=== PATIENT | female | born 1960 | race Caucasian/White ===

== ENCOUNTER 2021-06-11 14:02 | Outpatient (REF) | payer OTHER, SELFPAY ==
--- NOTE | ~2021-06-11 | XR_ITS ---
EXAMINATION: XR KNEE, BILATERAL XR KNEE, RIGHT CLINICAL INFORMATION: Right knee pain. COMPARISON: None. TECHNIQUE: Standing AP view of both knees and lateral and sunrise views of the right knee. FINDINGS: Right knee: Severe medial compartment joint space narrowing with minimal bony remodeling. Mild patellofemoral compartment joint space narrowing. Tricompartmental marginal osteophytes. No fracture or dislocation. Trace joint effusion. No abnormal soft tissue calcification. No acute fracture or dislocation. Left knee: Mild medial compartment joint space narrowing. Medial and lateral compartment marginal osteophytes. No osseous erosion. No fracture or dislocation. No abnormal soft tissue calcification. XR/XR knee RT 2V IMPRESSION: Right knee: Severe medial compartment as well as more moderate patellofemoral and lateral compartment osteoarthritis. Trace joint effusion. Left knee: [id number] medial as well as more mild lateral compartment osteoarthritis.
--- NOTE | ~2021-06-11 | XR_ITS ---
EXAMINATION: XR KNEE, BILATERAL XR KNEE, RIGHT CLINICAL INFORMATION: Right knee pain. COMPARISON: None. TECHNIQUE: Standing AP view of both knees and lateral and sunrise views of the right knee. FINDINGS: Right knee: Severe medial compartment joint space narrowing with minimal bony remodeling. Mild patellofemoral compartment joint space narrowing. Tricompartmental marginal osteophytes. No fracture or dislocation. Trace joint effusion. No abnormal soft tissue calcification. No acute fracture or dislocation. Left knee: Mild medial compartment joint space narrowing. Medial and lateral compartment marginal osteophytes. No osseous erosion. No fracture or dislocation. No abnormal soft tissue calcification. XR/XR knee standing BI IMPRESSION: Right knee: Severe medial compartment as well as more moderate patellofemoral and lateral compartment osteoarthritis. Trace joint effusion. Left knee: Lgaq-[id number] medial as well as more mild lateral compartment osteoarthritis.
== END 2021-06-11 14:03 | disposition home or self-care (01) ==
LOC: HO.HOSX 14:02
PROVIDERS: PCP Hospitalist; Visit Provider Orthopaedic Surgery
DX: M17.11 Unilateral primary osteoarthritis, right knee (principal)
CPT/HCPCS: 73560; 73565

== ENCOUNTER → 2021-08-07 10:22 | Outpatient (BNVA) | payer OTHER, SELFPAY | PROVIDERS: PCP Hospitalist; Visit Provider Orthopaedic Surgery | DX: M17.11 Unilateral primary osteoarthritis, right knee (principal) | CPT/HCPCS: 20610; J7323 ==

== ENCOUNTER → 2021-08-14 10:08 | Outpatient (BNVA) | payer OTHER, SELFPAY | PROVIDERS: PCP Hospitalist; Visit Provider Orthopaedic Surgery | DX: M17.11 Unilateral primary osteoarthritis, right knee (principal) | CPT/HCPCS: 20610; J7323 ==

== ENCOUNTER → 2021-08-21 10:19 | Outpatient (BNVA) | payer OTHER, SELFPAY | PROVIDERS: PCP Hospitalist; Visit Provider Orthopaedic Surgery | DX: M17.11 Unilateral primary osteoarthritis, right knee (principal) | CPT/HCPCS: 20610; J7323 ==

== ENCOUNTER 2021-12-30 15:34 | Outpatient (REF) | payer OTHER, SELFPAY ==
--- NOTE | ~2021-12-30 | XR_ITS ---
EXAMINATION: XR FOOT, LEFT CLINICAL INFORMATION: Pain left foot COMPARISON: None TECHNIQUE: AP, lateral, and oblique views of the left foot. FINDINGS: There is an oblique fracture involving the shaft and neck fifth toe proximal phalanx. Distal fracture fragment shows mild lateral and dorsal displacement. No dislocation or destructive process. The remainder the bony structures appear intact. There is a hallux valgus and bunion first MTP. Bulky posterior and plantar calcaneal spurs are present. XR/XR foot LT min 3V IMPRESSION: 1. Fracture fifth toe proximal phalanx. 2. Hallux valgus and bunion first MTP. 3. Bulky posterior and plantar calcaneal spurs.
== END 2021-12-30 15:35 | disposition home or self-care (01) ==
LOC: HO.HOSX 15:34
PROVIDERS: Visit Provider Physician Assistant
DX: M79.672 Pain in left foot (principal)
CPT/HCPCS: 73630

== ENCOUNTER 2022-05-17 10:28 | Outpatient (REF) | payer OTHER, SELFPAY ==
[2022-03-01 12:30] VITALS: BP 132/79; PULSE 72; RESP 20; O2SAT 97; BMI 28.7
--- NOTE | 2022-03-01 12:52 | HO.ANESPROP2 ---
[facility] Active Problems Active Problems: All Active Problems (Updated 03/01/22 @ 12:29 by Carolann Srinivasan RN) Arthritis of right knee (Acute) Fracture of proximal phalanx of toe of left foot (Acute) Past Medical History Medical History (Updated 03/01/22 @ 12:29 by Carolann Srinivasan, JUAN) Arthritis Diabetes Elevated cholesterol GERD (gastroesophageal reflux disease) History of COVID-19 HTN (hypertension) Family History Family history of problems with anesthesia: No Surgical History Surgical History (Updated 03/01/22 @ 12:25 by Carolann Srinivasan RN) H/O colonoscopy Hx of arthroscopy of right knee Hx of cholecystectomy History of Problems with Anesthesia: No Social History Social History Are you a primary foster care therapist to a significant other at home: No Do you presently have visiting nurse or other home services: No Patient Tobacco Use Status: Never used Tobacco Narrative Narrative: Covid + 2 weeks ago, lingering superficial cough (lungs CTA today) >4 mets without CP/SOB Meds Allergies Allergy/AdvReac Type Severity Reaction Status Date / Time No Known Allergies Allergy Verified 08/21/21 10:24 Home Medications Medication Instructions Recorded Confirmed Last Taken Type hydrochlorothiazide 25 mg tablet 25 mg PO DAILY 06/11/21 03/01/22 Unknown History lisinopril 5 mg tablet 5 mg PO DAILY 06/11/21 03/01/22 Unknown History omeprazole 20 mg capsule,delayed 20 mg PO Q2D 06/11/21 03/01/22 Unknown History release rosuvastatin 40 mg tablet 40 mg PO QAM 06/11/21 03/01/22 Unknown History glimepiride 2 mg tablet 2 mg PO DAILY 03/01/22 03/01/22 Unknown History metformin 500 mg tablet,extended 2 tab PO BID 03/01/22 03/01/22 Unknown History release 24 hr Exam Exam Date and Time: March 01, 2022 125 Height,Weight and Vital Signs: Height 5 ft 8 in Weight 85.729 kg Last Vital Signs Pulse 72 03/01/22 12:30 Resp 20 03/01/22 12:30 BP 132/79 03/01/22 12:30 Pulse Ox 97 03/01/22 12:30 O2 Del Method 03/01/22 12:30 Pertinent Lab Results Pertinent Lab Results: Labs per outside facility: elevated A1C otherwise WNL Narrative Narrative: EKG 02/2022 SR @ 77 Airway Mallampati Class: I TM Dist: >3cm Neck ROM: Full Loose/Missing/Broken Teeth: Yes (Missing right side lower molar, crowned molar) Heart: RRR Lungs: CTAB Assessment and Plan Assessment Anesthesia Assessment: Anesthesia Plan Discussed and PAT Visit Final Anesthetic Review Family History of Problems with Anesthesia: No History of Problems with Anesthesia: No
[2022-03-01 15:15] LABS: MRSA Nasal PCR NEGATIVE (Negative); SA Nasal PCR NEGATIVE (Negative)
[2022-03-03 11:50] LABS: Estimated Average Glucose 217 mg/dL; Hemoglobin A1c % 9.2 %
== END 2022-05-17 10:29 | disposition home or self-care (01) ==
LOC: HO.PAT 10:28
PROVIDERS: Physician Assistant; PCP Hospitalist; Visit Provider Orthopaedic Surgery
DX: Z01.818 Encounter for other preprocedural examination (principal); Z79.899 Other long term (current) drug therapy
CPT/HCPCS: 36415; 83036; 86900; 86901; 87640; 87641

== ENCOUNTER 2022-12-13 14:51 | Outpatient (AMB) | payer OTHER, SELFPAY ==
--- NOTE | 2022-12-13 14:54 | MHC.OFFVIS ---
Intake Intake Visit Reasons: discuss RT TKA, scheduled for 03/08/23 Intake Note: This is a 61 year old female who presents to continue to discuss surgery with Dr. Hoyos today. She states she would like to have surgery on 03/08/23. Allergies No Known Allergies Allergy (Verified 12/13/22 14:56) Medication List - Last Reconciled 12/13/22 by Harriet Weir, RN glimepiride 2 mg PO DAILY hydrochlorothiazide 25 mg PO DAILY lisinopril 5 mg PO DAILY metformin ER 2 tabs PO BID omeprazole 20 mg PO Q2D rosuvastatin 40 mg PO QAM HPI discuss RT TKA, scheduled for 03/08/23 HPI Details Barbara is a 61 year old Diabetic woman with right knee OA, here to discuss surgery. She is currently scheduled for a right TKA on 03/22/23 but believes her surgery is scheduled for 03/08/23. She complains of pain with daily activity, worse with prolonged walking or using stairs. 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 She says her Diabetes has been better controlled, and her most recent HgA1c was ~7.3%. She has been working on weight management & intermittent fasting. [facility] Medical History (Updated 12/13/22 @ 15:05 by Anthony Mahan) History of COVID-19 Arthritis Diabetes GERD (gastroesophageal reflux disease) Elevated cholesterol HTN (hypertension) Surgical History (Updated 03/01/22 @ 12:25 by Carolann Srinivasan RN) Hx of cholecystectomy H/O colonoscopy Hx of arthroscopy of right knee Social History Are you a primary patient care technician to a significant other at home: No Do you presently have visiting nurse or other home services: No Patient Tobacco Use Status: Never used Tobacco Review of Systems Const All systems reviewed & are unremarkable except as noted in HPI and below Physical Exam Const General: no acute distress, alert and awake Orientation/consciousness: patient oriented x3 HEENT Head: Yes normocephalic and Yes atraumatic Eyes EOM: EOMs intact bilaterally Resp Effort & Inspection: normal respiratory effort and able to speak in complete sentences Cardio Jugular venous distension: no JVD Skin General skin exam: turgor normal Rashes: no rashes Neuro General: patient oriented x3 Extrem Other: Medial joint line TTP antalgic gait Psych Appearance: grossly normal Affect: normal affect Attitude: cooperative Assessment & Plan Assessment & Plan (1) Arthritis of right knee: Code(s): M17.11 - Unilateral primary osteoarthritis, right knee Plan: This is a 61 year old woman with right knee OA. She has pain with daily activity, worse with prolonged ambulation or using stairs. She has failed conservative treatment options and feels her QOL is diminished. She is currently scheduled for a right TKA on 03/22/23, but believes she is scheduled for 03/08/23. I recommend we proceed with surgery as her Diabetes is better controlled at this time. I discussed the risks, benefits, and alternatives including, but not limited to, the risk of pain, infection, stiffness, need for further surgery as well as potential medical complications such as blood clots, pulmonary embolism and cardiac complications. I discussed the recovery timeline and process as well as the importance of PT. Barbara is a good candidate for this surgery, and she wishes to proceed with this decision. She will speak with Grace to schedule this procedure. (2) Diabetes: Comment: type 2-dx ~ 2018-taking metformin & new Rx for glimeperide 02/23-awaiting mail order to come in 03/01/22-does not usually check glucose Code(s): E11.9 - Type 2 diabetes mellitus without complications Plan: Says her most recent HgA1c was ~7.3% Plan Scribed for Asa Hoyos MD by Anthony Mahan, medical director/head team physician, on 12/13/22 at 3:05 PM, EST. Coding Level of Care Code Est Pt Level 4 (89643) Diagnoses Arthritis of right knee M17.11 Diabetes E11.9
== END 2022-12-13 15:47 | disposition home or self-care (01) ==
PROVIDERS: PCP Hospitalist; Visit Provider Orthopaedic Surgery
DX: M17.11 Unilateral primary osteoarthritis, right knee (principal)
CPT/HCPCS: 99214

== ENCOUNTER → 2022-12-13 14:51 | Outpatient (BNVA) | payer OTHER, SELFPAY | PROVIDERS: PCP Hospitalist; Visit Provider Orthopaedic Surgery ==

== ENCOUNTER 2023-03-03 13:23 | Outpatient (AMB) | payer OTHER, SELFPAY ==
--- NOTE | 2023-03-03 13:27 | MHC.OFFVIS ---
Intake Vital Signs 03/03/23 13:30 Height 5 ft 7 in Weight 196 lb BMI 30.7 Intake Visit Reasons: Preop RT TKA 03/08/23 NE Intake Note: Barbara a 62 year old female presents today for a preoperative right TKA, DOS 03/08/23. Pain management agreement reviewed and signed. Allergies No Known Allergies Allergy (Verified 03/03/23 13:31) Medication List - Last Reconciled 03/03/23 by Brian Awan PA-C dulaglutide (Trulicity) 1.5 mg subcut QWEEK glimepiride 2 mg PO QAM hydrochlorothiazide 25 mg PO QAM lisinopril 5 mg PO QAM metformin ER 2 tabs PO BID omeprazole 20 mg PO Q2D rosuvastatin 40 mg PO Q2D walker Folding Front wheeled walker HPI HPI Comments History of Present Illness Details Ms Heidi West presents to the office today for preop visit. She is scheduled for right total knee arthroplasty with Dr. Hoyos. She continues to have ongoing pain and difficulty with ambulation in the right knee, which is affecting her quality of life; therefore, she has elected to move forward with surgery. She lives alone with stairs only to enter the house. She does have a walker. She has family who will help with her recovery. [facility] Medical History (Updated 03/03/23 @ 12:15 by Carolann Srinivasan RN) Chest pain History of COVID-19 Arthritis Diabetes GERD (gastroesophageal reflux disease) Elevated cholesterol HTN (hypertension) Surgical History Hx of cardiac catheterization Hx of cholecystectomy H/O colonoscopy Hx of arthroscopy of right knee Social History Are you a primary pharmacy customer care specialist to a significant other at home: No Do you presently have visiting nurse or other home services: No Patient Tobacco Use Status: Never used Tobacco Review of Systems Const All systems reviewed & are unremarkable except as noted in HPI and below Physical Exam Vital Signs: BMI result Body Mass Index 30.7 Const General: cooperative and no acute distress Orientation/consciousness: patient oriented x3 HEENT Head: Yes normal to inspection, Yes normocephalic and Yes atraumatic Eyes General: appearance normal, both eyes and all related structures Neck Neck: Yes normal visual inspection and Yes no lymphadenopathy Resp Effort & Inspection: normal respiratory effort and able to speak in complete sentences Cardio Rate: regular rate Peripheral pulses: Peripheral pulses 2+ throughout GI Inspection: Yes normal to inspection Palpation (GI): Soft to palpation Skin General skin exam: no rashes or lesions noted Neuro General: patient oriented x3 Extrem Other: Right knee: Skin intact. No abrasions. ROM is 0-110 degrees. Calf supple, nontender. NVI. Psych Appearance: grossly normal Mental Status: mental status grossly normal Assessment & Plan Assessment & Plan (1) Arthritis of right knee: Code(s): M17.11 - Unilateral primary osteoarthritis, right knee Plan: I discussed in detail the procedure and what to expect pre and post operatively. We discussed the risks, benefits and alternatives to the surgery as well as the rehabilitation course. The risks; which include, but are not limited to infection, bleeding, nerve injury, ongoing pain, swelling, and stiffness, perioperative risk of injury to bones and soft tissues, and blood clots. I?ve answered all questions and with their understanding they have consented to move forward with Right total knee arthroplasty with Dr. Hoyos Patient Instructions: Scribed for Brian Awan PA-C, by Jerry Rowland medical assistant internal medicine, on 03/03/2023 at 1:45 PM EST. I, Brian Awan PA-C, have personally reviewed and agree with the information entered by the scribe. Coding Level of Care Code Est Pt Level 3 (01492) Diagnoses Arthritis of right knee M17.11
[2023-03-03 13:30] VITALS: BMI 30.7
== END 2023-03-03 13:41 | disposition home or self-care (01) ==
PROVIDERS: PCP Hospitalist; Visit Provider Physician Assistant
DX: M17.11 Unilateral primary osteoarthritis, right knee (principal)
CPT/HCPCS: 99024

== ENCOUNTER → 2023-03-03 13:23 | Outpatient (BNVA) | payer OTHER, SELFPAY | PROVIDERS: PCP Hospitalist; Visit Provider Physician Assistant ==

== ENCOUNTER 2023-03-08 07:13 | Inpatient (IN) | payer OTHER, SELFPAY ==
[2023-03-03 12:21] VITALS: BP 129/77; PULSE 89; RESP 20; O2SAT 98; BMI 31.2
--- NOTE | 2023-03-03 12:36 | P.CONAN_ITS ---
Documented by User: Caren Reis NP 03/07/23 09:04 HPI - Anesthesia Eval Consult details Narrative: 62yo F for Right Knee Replacement Total PCP cleared. Cardiac cleared. (12/2022 admit to [facility] with CP. EKG, ECHO, cath WNL. Started on aspirin) No recent illness No CP/SOB within limits of pain DM. FBS <100 GERD. Well controlled with ppi QOD Anesthesia Pre-Procedure Meds Is the patient on any of the following meds?: Dulaglutide (Trulicity) (Last dose 02/27/23) If Yes to any meds - educate patient: Pt education - increased risk of aspiration and Pt education - possibility of cancelled proc at provider's discretion PMFSH Active Problems Active Problems: All Active Problems (Updated 03/03/23 @ 12:15 by Carolann Srinivasan RN) Fracture of proximal phalanx of toe of left foot (Acute) Arthritis of right knee (Acute) Diabetes (Acute) Past Medical History Medical History (Updated 03/03/23 @ 12:15 by Carolann Srinivasan RN) Chest pain History of COVID-19 Arthritis Diabetes GERD (gastroesophageal reflux disease) Elevated cholesterol HTN (hypertension) Family History Family history of problems with anesthesia: No Surgical History Surgical History Hx of cardiac catheterization Hx of cholecystectomy H/O colonoscopy Hx of arthroscopy of right knee History of Problems with Anesthesia: No Social History Social History Are you a primary hearing care professional to a significant other at home: No Do you presently have visiting nurse or other home services: No Patient Tobacco Use Status: Never used Tobacco Use of substances other than those prescribed or required for medical reasons: No Have you been hit, kicked, punched, or otherwise hurt by someone within the past year? If so, by whom?: No Are you DNR?: No Advance Directives Information Provided: Yes (as above noted) Advance Directives on File: No Recently lost weight without trying: No Eating poorly because of decreased appetite: No Nutrition Risks: No Nutritional Risk Poor oral hygiene: No Meds Allergies Allergy/AdvReac Type Severity Reaction Status Date / Time No Known Allergies Allergy Verified 03/03/23 13:31 Home Medications Medication Instructions Recorded Confirmed Last Taken Type hydrochlorothiazide 25 mg tablet 25 mg PO QAM 06/11/21 03/03/23 03/07/23 History lisinopril 5 mg tablet 5 mg PO QAM 06/11/21 03/03/23 03/07/23 History omeprazole 20 mg capsule,delayed 20 mg PO Q2D 06/11/21 03/03/23 03/07/23 History release rosuvastatin 40 mg tablet 40 mg PO Q2D 06/11/21 03/03/23 03/07/23 History glimepiride 2 mg tablet 2 mg PO QAM 03/01/22 03/03/23 03/07/23 History metformin 500 mg tablet,extended 2 tab PO BID 03/01/22 03/03/23 03/07/23 History release 24 hr dulaglutide 1.5 mg/0.5 mL 1.5 mg subcut QWEEK 03/03/23 03/08/23 02/27/23 History subcutaneous pen injector (Trulicity) Exam Height,Weight and Vital Signs: Height 5 ft 6.5 in Weight 89 kg Last Vital Signs Pulse 89 03/03/23 12:21 Resp 20 03/03/23 12:21 BP 129/77 03/03/23 12:21 Pulse Ox 98 03/03/23 12:21 O2 Del Method Room Air 03/03/23 12:21 Pertinent Lab Results Pertinent Lab Results: Laboratory Last Values WBC 10.3 X10*3/uL (4.8-10.8) 03/03/23 13:16 RBC 4.97 X10*6/uL (4.20-5.50) 03/03/23 13:16 Hgb 14.4 g/dl (12.0-16.0) 03/03/23 13:16 Hct 42.3 % (37.0-47.0) 03/03/23 13:16 MCV 85.1 fL (80.0-98.0) 03/03/23 13:16 MCH 29.0 pg (27.0-33.0) 03/03/23 13:16 MCHC 34.0 g/dl (31.0-35.0) 03/03/23 13:16 RDW 12.6 % (11.0-16.0) 03/03/23 13:16 Plt Count 488 X10*3/uL (160-400) H 03/03/23 13:16 MPV 8.8 fL (9.4-12.3) L 03/03/23 13:16 Immature Gran % (Auto) 0.2 % (0.0-0.4) 03/03/23 13:16 Neut % (Auto) 58.5 % (45-73) 03/03/23 13:16 Lymph % (Auto) 29.7 % (20-40) 03/03/23 13:16 [place] % (Auto) 9.4 % (2-11) 03/03/23 13:16 Eos % (Auto) 1.7 % (0-4) 03/03/23 13:16 Baso % (Auto) 0.5 % (0-2) 03/03/23 13:16 Lymph # (Auto) 3.1 X10*3/uL (1.2-4.9) 03/03/23 13:16 [place] # (Auto) 1.0 X10*3/uL (0.1-1.2) 03/03/23 13:16 Eos # (Auto) 0.2 X10*3/uL (0.0-0.4) 03/03/23 13:16 Baso # (Auto) 0.1 X10*3/uL (0.0-0.2) 03/03/23 13:16 Abs Immat Gran (auto) 0.02 X10*3/uL (0.00-0.03) 03/03/23 13:16 Absolute Neuts (auto) 6.1 x10*3/uL (2.0-8.3) 03/03/23 13:16 Absolute Nucleated RBC 0.000 X10*3/uL (0.0-0.012) 03/03/23 13:16 Nucleated RBC % (auto) 0.0 /100WBC (0.0-0.2) 03/03/23 13:16 Nasal Screen MRSA (PCR) NEGATIVE (Negative) 03/03/23 12:30 Nasal S. aureus Screen NEGATIVE (Negative) 03/03/23 12:30 Nasal MRSA/S.aureus Interp SEE NOTE 03/03/23 12:30 Blood Type A Positive 03/03/23 13:58 Antibody Screen NEGATIVE 03/03/23 13:58 CMP from outside facility 02/2023 WNL Narrative Narrative: EKG 01/2023 NSR @ 81 ECHO 12/2022 1. LV nml is size. LV wall thickness mildly increased. LV systolic function nml with an estimated LVEF 55-65%. No RWMA. Indeterminate diastolic function 2. RV nml size and funtion. An accurate PAP could not be obtained 3. Biatrial size is nml 4. No hemodynamically significant valve disease 5. Asc aorta and aortic root are nml in size. Mild plaque in ascending aorta. Cardiac cath 12/2022 No clear leasions, LVEDP wnl Airway Mallampati Class: II TM Dist: >3cm Neck ROM: Full Loose/Missing/Broken Teeth: Yes (1 x missing, 1 x implant, ) Heart: RRR Lungs: CTAB Assessment and Plan Assessment Anesthesia Assessment: Anesthesia Plan Discussed and PAT Visit Final Anesthetic Review Family History of Problems with Anesthesia: No History of Problems with Anesthesia: No Documented by User: Jw Sawyer MD 03/08/23 08:08 [facility] Past Medical History Medical History (Updated 03/03/23 @ 12:15 by Carolann Srinivasan RN) Chest pain History of COVID-19 Arthritis Diabetes GERD (gastroesophageal reflux disease) Elevated cholesterol HTN (hypertension) Surgical History Surgical History Hx of cardiac catheterization Hx of cholecystectomy H/O colonoscopy Hx of arthroscopy of right knee Social History Social History Are you a primary hearing care professional to a significant other at home: No Do you presently have visiting nurse or other home services: No Patient Tobacco Use Status: Never used Tobacco Use of substances other than those prescribed or required for medical reasons: No Have you been hit, kicked, punched, or otherwise hurt by someone within the past year? If so, by whom?: No Are you DNR?: No Advance Directives Information Provided: Yes (as above noted) Advance Directives on File: No Recently lost weight without trying: No Eating poorly because of decreased appetite: No Nutrition Risks: No Nutritional Risk Poor oral hygiene: No Meds Allergies Allergy/AdvReac Type Severity Reaction Status Date / Time No Known Allergies Allergy Verified 03/03/23 13:31 Home Medications Medication Instructions Recorded Confirmed Last Taken Type hydrochlorothiazide 25 mg tablet 25 mg PO QAM 06/11/21 03/03/23 03/07/23 History lisinopril 5 mg tablet 5 mg PO QAM 06/11/21 03/03/23 03/07/23 History omeprazole 20 mg capsule,delayed 20 mg PO Q2D 06/11/21 03/03/23 03/07/23 History release rosuvastatin 40 mg tablet 40 mg PO Q2D 06/11/21 03/03/23 03/07/23 History glimepiride 2 mg tablet 2 mg PO QAM 03/01/22 03/03/23 03/07/23 History metformin 500 mg tablet,extended 2 tab PO BID 03/01/22 03/03/23 03/07/23 History release 24 hr dulaglutide 1.5 mg/0.5 mL 1.5 mg subcut QWEEK 03/03/23 03/08/23 02/27/23 History subcutaneous pen injector (Trulicity) Assessment and Plan Final Anesthetic Review NPO: Yes ASA Class: III Final Preanesthetic Review: No Changes in Pt Med Stat, Meds/Allgs Chart Reviewed and Anes Risks/Benef Reviewed Patient Risk: Intermediate Procedure Risk: Intermediate Anesthetic Plan Anesthetic Plan: Spinal, Regional Block and Agree w/ Assess. and Plan Disposition: Standard PACU
[2023-03-03 13:16] LABS: MANUAL DIFF FLAG NO
[2023-03-03 14:08] LABS: Basophils Absolute Auto 0.1 X10*3/uL (0.0-0.2); Basophils Percent Auto 0.5 % (0-2); Eosinophils Absolute Auto 0.2 X10*3/uL (0.0-0.4); Eosinophils Percent Auto 1.7 % (0-4); Hematocrit 42.3 % (37.0-47.0); Hemoglobin 14.4 g/dl (12.0-16.0); Imm Gran Abs Auto 0.02 X10*3/uL (0.00-0.03); Imm Gran Pct Auto 0.2 % (0.0-0.4); Lymphocytes Absolute Auto 3.1 X10*3/uL (1.2-4.9); Lymphocytes Percent Auto 29.7 % (20-40); Mean Corpuscular Volume 85.1 fL (80.0-98.0); Mean Platelet Volume 8.8 fL (9.4-12.3); Monocytes Percent Auto 9.4 % (2-11); Neutrophils Absolute Auto 6.1 x10*3/uL (2.0-8.3); Neutrophils Percent Auto 58.5 % (45-73); Platelet Count 488 X10*3/uL (160-400); Red Blood Count 4.97 X10*6/uL (4.20-5.50); Red Cell Distribution Width 12.6 % (11.0-16.0); White Blood Count 10.3 X10*3/uL (4.8-10.8)
[2023-03-03 14:24] LABS: MRSA Nasal PCR NEGATIVE (Negative); SA Nasal PCR NEGATIVE (Negative)
[2023-03-08] VITALS (14 sets, daily range): BP systolic 100–148; BP diastolic 52–79; PULSE 70–89; RESP 14–18; TEMP 36.1–36.6; O2SAT 94–99; BMI 31.0
--- NOTE | ~2023-03-08 | XR_ITS ---
EXAMINATION: XR KNEE, RIGHT CLINICAL INFORMATION: Right total knee arthroplasty COMPARISON: 06/11/2021 TECHNIQUE: Three views of the right knee. FINDINGS: Prosthetic components of the total knee arthroplasty are appropriately aligned. No periprosthetic fracture. Gas from recent surgery is present in the joint and surrounding soft tissues. Skin cherie are present anteriorly. XR/XR knee RT 2V IMPRESSION: Appropriate alignment of the right total knee arthroplasty.
--- OUTSIDE RECORDS SUMMARY | 2023-03-08 07:19 | XMS_ITS | Continuity of Care Document ---
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 Role Phone Not on Staff, PCP Primary Care Physician Unavail able Encounter [facility] Date(s): 01/07/23 - 01/07/[address] [address]- Discharge Disposition: Transferred to [facility]-term [facility] Attending Physician: Arturo Selby DO Admitting Physician: Arturo Selby DO Referring Physician: Not on Staff, Referring MD Allergies, Adverse Reactions, Alerts No Known Allergies Medications Freestyle Lancets Freestyle Lancets, Refills 0, Maintenance, 01/28/16 15:05:27, Compound Start Date: 01/28/16 Status: Ordered Freestyle Litestrips Freestyle Litestrips, Refills 0, Maintenance, 01/28/16 15:06:11, Compound Start Date: 01/28/16 Status: Ordered glimepiride 2 mg oral tablet 1 tablet = 2 mg, By Mouth, Daily, # 30 tablet, 0 Refills, Maintenance, 01/07/23 9:37:00 EDT, Tablet, Partial fill upon patient request if the prescription is for a schedule II opioid drug. Start Date: 01/07/23 Status: Ordered hydrochlorothiazide 25 mg oral tablet 25 mg, 1, tablet, By Mouth, Daily, Refills 0, Maintenance, 01/07/23 9:44:00 EDT, Partial fill upon patient request if the prescription is for a schedule II opioid drug. Start Date: 01/07/23 Status: Ordered lisinopril 5 mg oral tablet 5 mg, 1, tablet, By Mouth, Daily, # 30 tablet, Refills 0, Maintenance, 01/07/23 9:34:00 EDT, Partial fill upon patient request if the prescription is for a schedule II opioid drug. Start Date: 01/07/23 Status: Ordered MetFORMIN (Eqv-Glucophage XR) 500 mg oral tablet, extended release 2 tablet = 1,000 mg, By Mouth, 2 times a day, 0 Refills, Maintenance, 01/07/23 9:33:00 EDT, Partialfill upon patient request if the prescription is for a schedule II opioid drug. Start Date: 01/07/23 Status: Ordered Metoprolol Tartrate 25 mg oral tablet 0.5 tablet = 12.5 mg, By Mouth, 2 times a day, WITH FOOD Start Date: 01/07/23 Status: Ordered omeprazole 20 mg oral enteric coated capsule 1 capsule = 20 mg, By Mouth, Daily, 0 Refills, Maintenance, 01/28/16 14:50:08 Start Date: 01/28/16 Status: Ordered rosuvastatin 40 mg oral tablet 1 tablet = 40 mg, By Mouth, Daily, # 60 tablet, 0 Refills, Maintenance, 01/07/23 9:34:00 EDT, Tablet, Partial fill upon patient request if the prescription is for a schedule II opioid drug. Start Date: 01/07/23 Status: Ordered Trulicity Pen 1.5 mg/0.5 mL subcutaneous solution = 1.5 mg, Subcutaneous Injection, Every week, on Sundays Start Date: 01/07/23 Status: Ordered Problem List Condition Confirmation Course Effective Dates Status Health St atus Informant Family history of breast cancer Confirmed Active Lobular carcinoma in situ (LCIS) of right breast, and [place], 2012 Confirmed Active Obese class I Confirmed Active Vital Signs Most recent to oldest [Reference Range]: 1 2 3 Height 170 cm (01/07/23 7:32 AM) 170 cm (01/07/23 7:03 AM) 170 cm (01/07/23 7:01 AM) Weight 89.9 kg (01/07/23 7:32 AM) 89.9 kg (01/07/23 7:03 AM) 89.9 kg (01/07/23 7:01 AM) Oxygen Saturation [94-100 %] 100 % (01/07/23 7:32 AM) 96 % (01/07/23 7:03 AM) 98 % (01/07/23 7:01 AM) Pulse Rate [55-90 bpm] 86 bpm (01/07/23 7:32 AM) 92 bpm *H* (01/07/23 7:03 AM) 89 bpm (01/07/23 7:01 AM) Body Mass Index [18.5-24.99 kg/m2] 31.11 kg/m2 *>HHI* (01/07/23 7:32 AM) 31.11 kg/m2 *>HHI* (01/07/23 7:03 AM) 31.11 kg/m2 *>HHI* (01/07/23 7:01 AM) Blood Pressure [90-138/55-84 mm Hg] 141/82mm Hg *H* (01/07/23 7:32 AM) 115/104mm Hg (01/07/23 7:03 AM) 115/104mm Hg (01/07/23 7:01 AM) Respiratory Rate [16-30 br/min] 18 br/min (01/07/23 7:32 AM) 16 br/min (01/07/23 7:03 AM) 16 br/min (01/07/23 7:01 AM) Temperature [96.8-100.4 DegF] 98 DegF (01/07/23 7:32 AM) 98.4 DegF (01/07/23 6:44 AM) Mode of Delivery (Oxygen) Room air (01/07/23 7:32 AM) Room air (01/07/23 7:03 AM) Room air (01/07/23 7:01 AM) Blood pressure sites Arm, right (01/07/23 7:32 AM) Arm, right (01/07/23 7:03 AM) Arm, right (01/07/23:01 AM) Temperature Route Oral (01/07/23 7:32 AM) Oral (01/07/23 6:44 AM) Dry Weight 89.9 kg (01/07/23 7:32 AM) 89.9 kg (01/07/23 7:03 AM) 89.9 kg (01/07/23 7:01 AM) Weight Obtained Via Standing scale (01/07/23 6:44 AM) Standing scale (01/07/23 6:33 AM) Dry Weight Obtained Via Standing scale (01/07/23 6:44 AM) Standing scale (01/07/23 6:33 AM) Social History Social History Type Response Smoking Status Never smoker entered on: 08/09/14 Sex EKG study * Event Display: ECG 12-Lead Authored Date: Please click on pdf link to open report * Event Display: ECG 12-Lead Authored Date: Ventricular Rate: 87 BPM Atrial Rate: 87 BPM P-R Interval: 148 ms QRS Duration: 90 ms Q-T Interval: 386 ms QTC Calculation(Bazett): 464 ms P [place]: 24 degrees R [place]: 21 degrees T [place]: 39 degrees Normal sinus rhythm Normal ECG When compared with ECG of 07-JAN-2023 06:33, No significant change was found Confirmed by VERENA SUAZO MD ([id number]) on 01/07/2023 11:44:50 AM [place]: VERENA SUAZO MD Patient Care team information Care Team Personnel Name: Caren Wynne Position: [facility] Outreach Member Role: Lifetime Consulting Physician Name: Not on Staff, PCP Position: [facility] Physician (General Medicine) Member Role: PCP Name: Bri Garvey Position: [facility] Outreach Member Role: Lifetime Consulting Physician Name: Dary Moore Position: [facility] ED TA [facility] Name: Yaritza Junior DO Position: [facility] ED Medicine MD Member Role: ED Attending Physician Address: Address: [address] [place] [address] [place] [address]- Care Team Related Persons Name: LOUIS WINSTON Address: home [address] [place] [address]
--- OUTSIDE RECORDS SUMMARY | 2023-03-08 07:19 | XMS_ITS | Continuity of Care Document ---
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 Role Phone Mnada XIAO, Mary Primary Care Physician Encounter [facility] Date(s): 05/14/21 - 06/13/21 [facility] [address] [place] [address]- Allergies, Adverse Reactions, Alerts No Known Allergies Medications Freestyle Lancets Freestyle Lancets, Refills 0, Maintenance, 01/28/16 15:05:27, Compound Start Date: 01/28/16 Status: Ordered Freestyle Litestrips Freestyle Litestrips, Refills 0, Maintenance, 01/28/16 15:06:11, Compound Start Date: 01/28/16 Status: Ordered Hydrochlorothiazide By Mouth, Daily, 0 Refills, Maintenance, 08/09/14 13:38:01 Start Date: 08/09/14 Status: Ordered Lisinopril By Mouth, Daily, 0 Refills, Maintenance, 08/09/14 13:37:35 Start Date: 08/09/14 Status: Ordered metFORMIN 500 mg oral tablet 1 tablet = 500 mg, By Mouth, 2 times a day, 0 Refills, Maintenance, 01/28/16 14:48:28 Start Date: 01/28/16 Status: Ordered omeprazole 20 mg oral enteric coated capsule 1 capsule = 20 mg, By Mouth, Daily, 0 Refills, Maintenance, 01/28/16 14:50:08 Start Date: 01/28/16 Status: Ordered Simvastatin By Mouth, Daily at bedtime, 0 Refills, Maintenance, 08/09/14 13:38:28 Start Date: 08/09/14 Status: Ordered Problem List Condition Effective Dates Status Health Status Inform ant Family history of breast cancer(Confirmed) Active Lobular carcinoma in situ (L CIS) of right breast, and [place] 2013(Confirmed) Active Social History Social History Type Response Smoking Status Never smoker entered on: 08/09/14 Sex
--- OUTSIDE RECORDS SUMMARY | 2023-03-08 07:19 | XMS_ITS | Patient Health Record ---
Author Name Unknown Organization [facility] Address [address] [place] [address] Care Team Providers Care Wad Compressor Operator Adjuster Name Role Phone DANIELLA MCINTOSH Primary Care Provider KylahBeatriz jin Unavailable [phone] ALLERGIES No Known Allergies RESULTS Component Value Reference Range Notes CBC (COMPLETE BLOOD COUNT) Reviewed date:01/06/2023 07:54:06 AM Interpretation: Performing Lab:Testing performed or reported by [facility], a Service of [facility], [address] [place] [address] Kenneth Patel MD, Service Loss Control Consultant CLIA# [id number] Notes/Report: WBC 11.8 (4.0-11.0) K/MM3 RBC 5.03 (4.20-5.40) M/MM3 HGB 14.5 (11.7-15.5) GM/DL HCT 41.7 (35.7-45.8) % MCV 82.9 (80.0-100.0) FL MCH 28.8 (27.0-34.0) PG MCHC 34.8 (33.0-37.0) g/dL PLT 443 (150-460) K/MM3 RDW-SD 38.1 (<47.0) FL MPV 8.7 (9.4-12.4) FL AUTOMATED NRBC 0.0 ABS. NRBC 0.0 COMPREHENSIVE METABOLIC PANE L Reviewed date:01/06/2023 07:53:53 AM Interpretation: Performing Lab:Testing performed or reported by [facility], a Service of [address] [address] Kenneth Patel MD, Service Loss Control Consultant CLIA# [id number] Notes/Report: GLUCOSE 203 (70-99) MG/DL BUN 11 (8-23) MG/DL CREATININE 0.6 (0.5-1.0) MG/DL SODIUM 134 (133-145) MMOL/L POTASSIUM 3.9 (3.6-5.2) MMOL/L CHLORIDE 96 (98-107) MMOL/L BICARBONATE 24 (22-29) MMOL/L ANION GAP 14 (4-17) ALBUMIN 4.6 (3.4-4.8) GM/DL CALCIUM 9.4 (8.6-10.5) MG/DL BILIRUBIN,TOTAL 0.3 (0-1.2) MG/DL TOTAL PROTEIN 7.1 (6.2-8.2) GM/DL AG RATIO 1.8 AST 19 (0-32) U/L ALK PHOS 84 (35-104) U/L ALT 24 (0-33) U/L ESTIMATED GFR CREATININE 100 Creatinine based estimated glomerular filtration (eGFR) in adults is calculated using the National Kidney Foundation recommended 2020 CKD-EPI equation. Estimates GFR from serum creatinine, age and sex. TSH Reviewed date:01/06/2023 07:54:13 AM Interpretation: Performing Lab:Testing performed or reported by [facility], a Service of [address] [address] Kenneth Patel MD, Service Loss Control Consultant [facility]# [id number] Notes/Report: TSH 1.06 (0.4-4.2) uIU/mL HEMOGLOBIN A1C Reviewed date:06/24/2022 04:15:27 PM Interpretation: Performing Lab:Testing performed or reported by [facility], a Service of [address] [address] Paradise Torres MD, Service Loss Control Consultant [facility]# [id number] Notes/Report: HEMOGLOBIN A1C 6.6 (4.0-5.6) % MONITORING: In known diabetic patients, hemoglobin A1c targets should be discussed with health care provider. DIAGNOSTIC USE: The [place] Diabetes Association (ADA) and the World Health Organization (WHO) recommend the use of HbA1c to diagnose diabetes using a threshold of 6.5%. Patients who have an HbA1c between 5.7% and 6.4% are considered at increased risk for developing diabetes in the future. CAUTION: Falsely low HbA1c results may be observed in patients with hemolytic anemia, homozygous forms of abnormal hemoglobin (e.g. SS, CC, SC), , recent blood loss or hemoglobin F greater than 7%. Fructosamine may be used as an alternate test in these cases. REFERENCE: ADA: Standards of Medical Care in Diabetes 2020, The Journal of Clinical and Applied Research and Education Volume 43, Supplement 1 HEMOGLOBIN A1C Reviewed date:09/24/2022 09:11:14 AM Interpretation: Performing Lab:Testing performed or reported by [facility], a Service of [address] [address] Kenneth Patel MD, Service Loss Control Consultant [facility]# [id number] Notes/Report: HEMOGLOBIN A1C 6.9 (4.0-5.6) % MONITORING: In known diabetic patients, hemoglobin A1c targets should be discussed with health care provider. DIAGNOSTIC USE: The [place] Diabetes Association (ADA) and the World Health Organization (WHO) recommend the use of HbA1c to diagnose diabetes using a threshold of 6.5%. Patients who have an HbA1c between 5.7% and 6.4% are considered at increased risk for developing diabetes in the future. CAUTION: Falsely low HbA1c results may be observed in patients with hemolytic anemia, homozygous forms of abnormal hemoglobin (e.g. SS, CC, SC), , recent blood loss or hemoglobin F greater than 7%. Fructosamine may be used as an alternate test in these cases. REFERENCE: ADA: Standards of Medical Care in Diabetes 2020, The Journal of Clinical and Applied Research and Education Volume 43, Supplement 1 High Sensitivity Troponin T Reviewed date:01/06/2023 08:43:43 AM Interpretation: Performing Lab:Testing performed or reported by [facility], a Service of [address] [address] Kenneth Patel MD, Service Loss Control Consultant [facility]# [id number] Notes/Report: High Sensitivity Troponin T 16 (<14) ng/L The reference range for high sensitivity Troponin T (hs-Dioni) is below the 99th percentile upper reference limit (14 ng/L for females and 22 ng/L for males). The elevated result above upper reference limit is not always consistent with myocardial infarction or injury. High Sensitivity Troponin T has a non-specific/non-diagnost ic elevation in the range of 14 ng/L- 52 ng/L. Interpretation is highly dependent on clinical presentation and patient history. Patients with active symptoms, dynamic EKG changes and/or concerning clinical presentations should be considered for urgent evaluation irrespective of troponin results. Clear elevation of hs-Dioni (> or EQ 53 ng/L) with positive delta change is consistent with myocardial injury or infarction. Interpretation is highly dependent on clinical presentation and patient history. Patients with renal failure, chronic heart failure, chronic infections and sepsis tend to run higher baseline hs-Dioni levels with significant elevations or positive delta per the ED and In-patient protocols having clinical relevance. COMPREHENSIVE METABOLIC PANE L Reviewed date:02/28/2023 04:33:20 PM Interpretation: Performing Lab:Testing performed or reported by [facility], a Service of [facility], [address] [place] [address] Kenneth Patel MD, Service Loss Control Consultant [facility]# [id number] Notes/Report: GLUCOSE 97 (70-99) MG/DL BUN 16 (8-23) MG/DL CREATININE 0.7 (0.5-1.0) MG/DL SODIUM 133 (133-145) MMOL/L POTASSIUM 4.6 (3.6-5.2) MMOL/L CHLORIDE 96 (98-107) MMOL/L BICARBONATE 26 (22-29) MMOL/L ANION GAP 11 (4-17) ALBUMIN 4.4 (3.4-4.8) GM/DL CALCIUM 9.3 (8.6-10.5) MG/DL BILIRUBIN,TOTAL 0.4 (0-1.2) MG/DL TOTAL PROTEIN 7.1 (6.2-8.2) GM/DL AG RATIO 1.6 AST 21 (0-32) U/L ALK PHOS 89 (35-104) U/L ALT 20 (0-33) U/L ESTIMATED GFR CREATININE 97 Creatinine based estimated glomerular filtration (eGFR) in adults is calculated using the National Kidney Foundation recommended 202 CKD-EPI equation. Estimates GFR from serum creatinine, age and sex. HEMOGLOBIN A1C WITH EST GLUC OSE Reviewed date:03/01/2023 11:57:22 AM Interpretation: Performing Lab:Testing performed or reported by [facility], a Service of [facility], [address] [place] [address] Kenneth Patel MD, Service Loss Control Consultant [facility]# [id number] Notes/Report: HEMOGLOBIN A1C 6.5 (4.0-5.6) % MONITORING: In known diabetic patients, hemoglobin A1c targets should be discussed with health care provider. DIAGNOSTIC USE: The [place] Diabetes Association (ADA) and the World Health Organization (WHO) recommend the use of HbA1c to diagnose diabetes using a threshold of 6.5%. Patients who have an HbA1c between 5.7% and 6.4% are considered at increased risk for developing diabetes in the future. CAUTION: Falsely low HbA1c results may be observed in patients with hemolytic anemia, homozygous forms of abnormal hemoglobin (e.g. SS, CC, SC), , recent blood loss or hemoglobin F greater than 7%. Fructosamine may be used as an alternate test in these cases. REFERENCE: ADA: Standards of Medical Care in Diabetes 2020, The Journal of Clinical and Applied Research and Education Volume 43, Supplement 1 ESTIMATED AVERAGE GLUCOSE 140 LIPID PANEL Reviewed date:02/28/2023 04:33:07 PM Interpretation: Performing Lab:Testing performed or reported by [facility], [place] [address] Kenneth Patel MD, Service Loss Control Consultant [facility]AY# [id number] Notes/Report: CHOLESTEROL, TOTAL 136 (<200) MG/DL TRIGLYCERIDE 100 (<150) MG/DL HDL CHOL 43 (>39) MG/DL LDL CHOLESTEROL, CALCULATED 73 (0-130) MG/DL NON HDL CHOLESTEROL (CALC) 93 (<160) MG/DL MICROALBUMIN, URINE Reviewed date:02/28/2023 04:33:23 PM Interpretation: Performing Lab:Testing performed or reported by [facility], a Service of [address] [address] Kenneth Patel MD, Service Loss Control Consultant [facility]# [id number] Notes/Report: MICRO-ALBUMIN <12.0 (<20) MG/L The urine microalbumin test is designed to monitor renal function. When screening for Bence Simms proteinuria, urine electrophoresis is recommended. MALB/CREAT RATIO Unable to calculate (0-20) MG/GM URINE CREAT FOR MICRO ALBUMIN 99.4 REASON FOR REFERRAL Reason snoring Diagnosis 1 Snoring (R06.83) Referral Organization [facility] Referring Provider First Name DANIELLA Referring Provider Last Name GUManuel Referring Provider Speciality Internal M edicine Referred Provider Specialty Sleep Medici ne General Notes Sent referral to [facility] - [address] [place] [address] w/ fax# [phone] phone #[phone]. Office will call pt for appt.Tabitha Ceasar 12/23/2022 04:19:30 PM > Clinical Notes Nicky from [facility] asked for the PT's details and offered to call us back within the next couple of days., Fritz ADORNO 01/31/2023 04:42:46 PM >, Got routed to the facility's answering service. Spoke to Mayank, he gathered the PT's name and advised that they will just call us back for the status of the referral and if the PT already has an appointment. No turnaround time provided., Fritz ADORNO 02/03/2023 09:15:26 AM >, Confirmed that [facility] received the referral. PT has been seen last 01/03/2023 by KYLAH Vidal, and was seen last 01/27 for home sleep study., Fritz ADORNO 02/04/2023 10:26:54 AM > Referral Priority Routine Reason Chest Pain- [facility] Diagnosis 1 Chest pain, unspecif ied (R07.9) Referral Organization [facility] Referring Provider First Name DANIELLA Referring Provider Last Name ARNALDO Referring Provider Speciality Internal edicine Referred Provider Specialty Cardiology General Notes [facility] Form and Re ferral sent to [facility] - [address] [place] [address] phone# [phone] ., Anthony Lu 01/11/2023 01:55:03 PM > Clinical Notes Received a fax from [facility] pt. is scheduled on 02/02/2023 11:20am with Dr. Stanley Gao at [address] [place] [address] [address]. [place]. Called pt. and pt. is aware.Tabitha Ceasar 01/28/2023 10:14:51 AM > Referral Priority Routine MEDICATIONS Medication SIG (Take, Route, Frequency, Duration) Notes Start Date End Date Status Vitamin C ER 1500 MG 1 tablet Orally Onc e a day for 90 days Active Naproxen 500 MG 1 tablet as needed Orally every 12 hrs for 90 days Active Vitamin B12 one daily Active Trulicity 1.5 MG/0.5ML INJECT [address] SUBCUTANEOUS ROUTE ONCE A WEEK 90 DAYS for 90 Active Glimepiride 2 MG 1 tablet with breakfast or the first main meal of the day Orally Once a day for 90 days 02/23/2022 Active metFORMIN HCl ER 500 MG 2 TABLETS Orally twice a day for 90 days Active Lisinopril 5 MG 1 tablet Orally Once a day for 90 days Active hydroCHLOROthiazide 25 MG 1 tablet in th e morning Orally Once a day for 90 days Active FreeStyle Lite Test - as directed Dx: E1 1.8 In Vitro check blood sugars three times daily for 90 days 06/23/2022 Active Omeprazole 20 MG 1 capsule 30 minutes before morning meal Orally Once a day for 90 days Active Rosuvastatin Calcium 40 MG 1 tablet Oral ly Once a day for 90 days Active Meclizine HCl 25 MG 1 tablet as needed Orally Once a day for 90 days 10/14/2021 Active IMMUNIZATIONS Vaccine Route Administration Date Status Comme nts Tdap Unknown 08/22/2009 Administered Tdap Unknown 11/26/2009 Administered Tdap Unknown 05/30/2019 Administered Hep B, adult dosage, for intramuscular use Unknown 11/20/2002 Administered COVID 19 Pfizer Unknown 05/03/2020 Administered COVID 19 Pfizer Unknown 05/24/2020 Administered SOCIAL HISTORY Tobacco Use: Social History Observation Description Date Details (start date - stop date) Never Smoker NA - NA Sex Assigned At : Social History Observation Description Sex Assigned At Unknown Tobacco Use/Smoking Question Answer Notes Are you a nonsmoker PROBLEMS Problem Type ICD Code Onset Dates Problem Status W/U Status Risk SNOMED Code Notes Problem Type 2 diabetes mellitus with unspecified complications (E11.8) Active confirmed Disorder due to type 2 diabetes mellitus (917994684) Problem Other obesity due to excess calories (E66.09) Active confirmed Obesity du e to excess calories (008954779) Problem Mixed hyperlipidemia (E78.2) Active confirmed Mixed hyperlipidemia (998917257) Problem Gastro-esophageal reflux disease without esophagitis (K21.9) Active confirmed Gastro-esophage al reflux disease without esophagitis (261967840) Problem Polyosteoarthriti s, unspecified (M15.9) Active confirmed Osteoarthritis (808013174) Problem Essential (primary) hypertension (I10) Active confirmed Essential hypertension (34642281) Problem Personal history of COVID-19 (Z86.16) Active confirmed History of disease caused by Severe acute respiratory syndrome coronavirus 2 (situation) (9903524747640476 05) VITAL SIGNS Heart Rate 98 /min 03/01/2023 Temperature 98.2 degrees Fahrenheit 03/01/2023 Oximetry 98 % 03/01/2023 Blood pressure diastolic 80 mm Hg 03/01/2023 Height 66.5 in 03/01/2023 Blood pressure systolic 128 mm Hg 03/01/2023 Weight 197 lbs 03/01/2023 BMI 31.32 kg/m2 03/01/2023 Encounters Encounter Location Date Provider Diagnosis [address] [address] 06/07/[address] [address] 06/16/[address] [address] 04/15/2022 Beatriz Montero Type 2 diabetes mellitus with unspecified complications E11.8 ; Adult-onset obesity E66.9 and Essential (primary) hypertension I10 [address] [address] 06/23/2022 [facility] Type 2 diabetes mellitus with unspecified complications E11.8 ; Essential (primary) hypertension I10 ; Mixed hyperlipidemia E78.2 ; Gastro-esophageal reflux disease without esophagitis K21.9 ; Body mass index (BMI) 30.0-30.9, adult Z68.30 ; Dietary counseling and surveillance Z71.3 and Pain in left shoulder M25.[address] [address] 12/23/2022 [facility] Type 2 diabetes mellitus with unspecified complications E11.8 ; Essential (primary) hypertension I10 ; Mixed hyperlipidemia E78.2 ; Gastro-esophageal reflux disease without esophagitis K21.9 ; Other obesity due to excess calories E66.09 and Dietary counseling and surveillance Z71.[address] [address] 01/05/2023 [facility] Chest pain, unspecif ied R07.9 [facility] [address] [place] [address] 01/11/2023 [facility] GUL Chest pain, unspecif ied R07.9 [facility] [address] [place] [address] 03/01/2023 BREW[facility] GUL Encounter for other preprocedural examination Z01.818 [facility] [address] [place] [address] 04/19/2022 [facility] [address] [place] [address] 04/23/2022 [facility] [address] [place] [address] 04/26/2022 [facility] Adult-onset obesity E66.9 and Type 2 diabetes mellitus without complications E11.9 [facility] [address] [place] [address] 06/23/2022 [facility] [address] [place] [address] 06/24/2022 [facility] [address] [place] [address] 09/08/2022 [facility] GUL Type 2 diabetes mellitus with unspecified complications E11.8 [facility] [address] [place] [address] 09/24/2022 [facility] GUL Type 2 diabetes mellitus with unspecified complications E11.8 [facility] [address] [place] [address] 10/26/2022 [facility] Type 2 diabetes mellitus with unspecified complications E11.8 ; Essential (primary) hypertension I10 and Type 2 diabetes mellitus without complications E11.9 [facility] [address] [place] [address] 01/06/2023 [facility] [address] [place] [address] 03/01/2023 [facility] [address] [place] [address] 04/12/2022 [facility] Encounter Date Diagnosis Assessment Notes Treatment Notes Treatment Clinical Notes 03/01/2023 Encounter for other preprocedural examination (ICD-10 - Z01.818) 01/11/2023 Chest pain, unspecified (ICD-10 - R07.9) 01/05/2023 Chest pain, unspecified (ICD-10 - R07.9) 12/23/2022 Type 2 diabetes mellitus with unspecified complications (ICD-10 - E11.8) 10/26/2022 Type 2 diabetes mellitus with unspecified complications (ICD-10 - E11.8) 09/24/2022 Type 2 diabetes mellitus with unspecified complications (ICD-10 - E11.8) 09/08/2022 Type 2 diabetes mellitus with unspecified complications (ICD-10 - E11.8) 04/15/2022 Type 2 diabetes mellitus with unspecified complications (ICD-10 - E11.8) 04/15/2022 Adult-onset obesity (ICD-10 - E66.9) 04/26/2022 Type 2 diabetes mellitus without complications (ICD-10 - E11.9) 04/26/2022 Adult-onset obesity (ICD-10 - E66.9) 06/23/2022 Type 2 diabetes mellitus with unspecified complications (ICD-10 - E11.8) 06/23/2022 Essential (primary) hypertension (ICD-10 - I10) 06/23/2022 Mixed hyperlipidemia (ICD-10 - E78.2) 12/23/2022 Essential (primary) hypertension (ICD-10 - I10) 10/26/2022 Essential (primary) hypertension (ICD-10 - I10) 04/15/2022 Essential (primary) hypertension (ICD-10 - I10) 10/26/2022 Type 2 diabetes mellitus without complications (ICD-10 - E11.9) 12/23/2022 Mixed hyperlipidemia (ICD-10 - E78.2) 06/23/2022 Gastro-esophageal reflux disease without esophagitis (ICD-10 - K21.9) 06/23/2022 Body mass index (BMI ) 30.0-30.9, adult (ICD-10 - Z68.30) 12/23/2022 Gastro-esophageal reflux disease without esophagitis (ICD-10 - K21.9) 12/23/2022 Other obesity due to excess calories (ICD-10 - E66.09) 06/23/2022 Dietary counseling and surveillance (ICD-10 - Z71.3) 06/23/2022 Pain in left shoulde r (ICD-10 - M25.512) 12/23/2022 Dietary counseling and surveillance (ICD-10 - Z71.3) PLAN OF TREATMENT Pending Test Test Name Order Date Echocardiogram 01/06/2023 HEMOGLOBIN A1C 09/08/2022 HEMOGLOBIN A1C 09/17/2021 HEMOGLOBIN A1C 09/02/2021 HEMOGLOBIN A1C 04/15/2022 HEMOGLOBIN A1C WITH EST GLUCOSE 06/25/19 22 TROPONIN T QUANT 01/05/2023 Next Appt Details Provider Name:DANIELLA MCINTOSH , 06/21/2023 02:00:00 PM, [address] [place], [address], Provider Name:DANIELLA MCINTOSH , 08/30/2023 08:15:00 AM, [address] [place], [address], Insurance Providers Payer Name Payer Address Payer Phone Subscriber Number Group Number Insured Name Patient Relationship to Insured Coverage Start Date Coverage End Date [facility] [address] [place] [phone] [id number] [place] Self - patient is the insured MEDICAL (GENERAL) HISTORY Medical History History ICD Code diabetes mellitus type II hypertension hyperlipidemia GERD arthritis, right knee joint, cortisone i njection 3 years ago at [facility] Personal history of COVID-19 Cataracts Surgical History Surgery Date(Month/Year) knee arthroscopy, [facility] 2007 Knee surgery 2021
--- OUTSIDE RECORDS SUMMARY | 2023-03-08 07:19 | XMS_ITS | Continuity of Care Document ---
Author Name Unknown Organization [facility] Address [address] [place] [address]- Care Team Providers Care Automated Process Operator Name Role Phone Manda XIAO, Mary Primary Care Physician [place] [facility] [place]07/20 [facility] [address] [place] [address]- Attending Physician: Nini Waters MD Admitting Physician: Nini Waters MD Referring Physician: Mary Holman MD Allergies, Adverse Reactions, Alerts Substance Reaction Severity Status NKA Active Medications Freestyle Lancets Freestyle Lancets, Refills 0, [...] (L CIS) of right breast, and JUDSON 2012(Confirmed) Active Social History Social History Type Response Smoking Status Never smoker entered on: 08/09/14 Sex
--- OUTSIDE RECORDS SUMMARY | 2023-03-08 07:19 | XMS_ITS | Continuity of Care Document ---
Author Name Unknown Organization [facility] Address [address] [place] [address]- Care Team Providers Care Tool Grinder Operator External Name Role Phone Ludwin Smith MD Primary Care Physician [phone] Encounter [facility] [place] Date(s): 01/27/23 - 02/26/23 [facility] [address] [place] [address]- Allergies, Adverse Reactions, Alerts No Known Allergies Medications aspirin 81 mg oral delayed release tablet 81 mg, By Mouth, Daily, # 30 tablet, Refills 0, Tot. Refills 0, Maintenance, 01/08/23 11:24:00 EDT,Route to Pharmacy Electronically, [facility], Partial fill upon patient request if the prescription is for a schedule II opioid drug., 17... Start Date: 01/08/23 Status: Ordered Freestyle Lancets Freestyle Lancets, Refills 0, Maintenance, [...] drug. Start Date: 01/07/23 Status: Ordered lisinopril 10 mg oral tablet 10 mg, 1, tablet, By Mouth, Daily, # 90 tablet, Refills 0, Tot. Refills 0, Maintenance, 01/08/23 11:24:00 EDT, Route to Pharmacy Electronically, [facility], Partial fill upon patient request if the prescription is for a schedule II opioi... Start Date: 01/08/23 Status: Ordered MetFORMIN (Eqv-Glucophage XR) 500 mg [...] Confirmed Active Obese class I Confirmed Active Social History Social History Type Response Smoking Status Never smoker entered on: 08/09/14 Sex Patient Care team information Care Team Personnel Name: Ludwin Smith MD Position: [facility] Physician - Primary Care Member Role: PCP Address: Address: [address] [place] [address]- Name: Caren Wynne Position: [facility] Outreach Member Role: Lifetime Consulting Physician Name: Sandra Herrera RN Position: [facility] RN Member Role: Primary Care Nurse Name: Bri Garvey Position: [facility] Outreach Member Role: Lifetime Consulting Physician Care Team Related Persons Name: LOUIS WINSTON Address: home [address] [place] [address]
--- OUTSIDE RECORDS SUMMARY | 2023-03-08 07:19 | XMS_ITS | Continuity of Care Document ---
Author Name Unknown Organization [facility] Address [address] [place] [address]- Care Team Providers Care Farm Laborer Name Role Phone Manda XIAO, Mary Primary Care Physician [place] [facility] [place]20 [facility] [address] [place] [address]- Attending Physician: Nini Waters MD Admitting Physician: [...]
--- OUTSIDE RECORDS SUMMARY | 2023-03-08 07:19 | XMS_ITS | Continuity of Care Document ---
Author Name Unknown Organization [facility] Address [address] [place] [address]- Care Team Providers Care Physician Compensation Analyst Name Role Phone Manda XIAO, Mary Primary Care Physician [place] [facility] [place] - 02/[place]/21 [facility] [address] [place] [address]- Allergies, Adverse Reactions, Alerts Substance Reaction Severity [...]
--- OUTSIDE RECORDS SUMMARY | 2023-03-08 07:19 | XMS_ITS | Continuity of Care Document ---
Author Name Unknown Organization [facility] Address [address] [place] [address]- Care Team Providers Care Aoc Director Combat Operations Officer Name Role Phone Mary Holman MD Primary Care Physician [place] [facility] [place]21 - 02/14/21 [facility] [address] [facility] [place] [address]- Attending Physician: Admtr, [id number] Admitting Physician: Admtr, [id number] Referring Physician: Admtr, [id number] Allergies, Adverse Reactions, Alerts Substance Reaction Severity [...]
--- OUTSIDE RECORDS SUMMARY | 2023-03-08 07:19 | XMS_ITS | Continuity of Care Document ---
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 Refills 0, Maintenance, 01/08/23 11:24:00 EDT,Route to Pharmacy Electronically, [facility], Partial fill upon patient [...] 01/08/23 11:24:00 EDT, Route to Pharmacy Electronically, [facility], Partial fill upon patient request if [...] opioid drug. Start Date: 01/07/23 Status: Ordered metoprolol 25 mg oral tablet 12.5 mg, Tablet, By Mouth, 01/07/23 10:16:00 EDT Start Date: 01/07/23 Stop Date: 01/07/23 Status: Completed metoprolol 25 mg oral tablet 12.5 mg, Tablet, By Mouth, 01/07/23 21:00:00 EDT Start Date: 01/07/23 Stop Date: 01/07/23 Status: Completed metoprolol 25 mg oral tablet 12.5 mg, Tablet, By Mouth, 01/08/23 9:00:00 EDT Start Date: 01/08/23 Stop Date: 01/08/23 Status: Completed Metoprolol Tartrate 25 mg oral tablet 0.5 [...] 1 2 3 Height 170 cm (01/07/23 10:01 AM) 170 cm (01/07/23 9:03 AM) Weight 88.4 kg (01/08/23 3:57 AM) 90.5 kg (01/07/23 10:01 AM) 90.5 kg (01/07/23 9:03 AM) Oxygen Saturation [94-100 %] 96 % (01/08/23 12:00 PM) 98 % (01/08/23 11:00 AM) 97 % (01/08/23 10:00 AM) Pulse Rate [55-90 bpm] 84 bpm (01/08/23 10:40 AM) 96 bpm *H* (01/07/23 8:59 PM) 95 bpm *H* (01/07/23 10:35 AM) Body Mass Index [18.5-24.99 kg/m2] 31.31 kg/m2 *>HHI* (01/07/23 10:01 AM) 31.31 kg/m2 *>HHI* (01/07/23 9:03 AM) Blood Pressure [90-138/55-84 mm Hg] 130/70mm Hg (01/08/23 12:00 PM) 124/55mm Hg (01/08/23 11:20 AM) 156/78mm Hg *H* (01/08/23 11:00 AM) Respiratory Rate [16-30 br/min] 16 br/min (01/08/23 12:00 PM) 27 br/min (01/08/23 11:00 AM) 22 br/min (01/08/23 10:00 AM) Temperature [96.8-100.4 DegF] 98.2 DegF (01/08/23 12:00 PM) 97.8 DegF (01/08/23 8:00 AM) 98.4 DegF (01/08/23 4:00 AM) Mode of Delivery (Oxygen) Room air (01/08/23 12:00 PM) Room air (01/08/23 11:00 AM) Room air (01/08/23 10:00 AM) Blood pressure sites Arm, left (01/08/23 12:00 PM) Arm, left (01/08/23 11:00 AM) Arm, left (01/08/23 10:00 AM) Temperature Route Oral (01/08/23 12:00 PM) Oral (01/08/23 8:00 AM) Oral (01/08/23 4:00 AM) Dry Weight 90.5 kg (01/07/23 9:03 AM) Weight Obtained Via Bed scale (01/08/23 3:57 AM) Bed scale (01/07/23 10:01 AM) Social History Social History Type Response Smoking Status Never smoker entered on: 08/09/14 Sex Note * Event Display: Hemodynamic Procedure Report Authored Date: * Iza Zamora: PERFORM, SIGN, VERIFY Event Display: Cardiac Rehab Note Authored Date: [id number] Patient: DANILO WINSTON Age: 62 years Sex: Female : 1960 Associated Diagnoses: None Author: Iza Zamora Patient chart reviewed. Patient does not meet STEMI criteria per MD admission note, nonobstructive CAD, EF 55-65%, no regional wall motion abnormalities . Patient is not appropriate for Phase 1 Cardiac Rehab at this time. Will F/U for education and ambulation when patient is clinically appropriate.Thank you, please page if we can be of further assistance, [phone] * Sandra Herrera RN: PERFORM Event Display: Discharge/Transfer Note Hospital Authored Date: Nursing Discharge Note Entered On: 01/08/2023 14:09 EDT Performed On: 01/08/2023 14:07 EDT by Sandra Herrera RN Nursing Discharge Note 2 Discharge Time : 01/08/2023 14:00 EDT Discharge Level of Care at Discharge : Home/Assisted/Foster Care Patient Left Unit Via : Ambulatory Patient Accompanied Off Unit with : Responsible adult DC Instructions Provided & Signed by Pt : Yes Patient Understands D/C Instructions : Yes Verbalized Understanding of D/C Plan By : Patient Patient Instructions Discharge Signed : Yes Did Pt have Specialty Bed or Wound Vac : No Javier MARTINEZ, Sandra - 01/08/2023 14:07 EDT * Jose Gonzalez MD, Flakita: PERFORM, MODIFY Event Display: Discharge/Transfer Note Hospital Authored Date: Patient: ??CATRACHITO DANILO ? Age:??62 Years?Sex:??Female?:??1960?? Patient Information Discharge Location: [facility] Primary Care Physician: Not on Staff, PCP Admit Date/Time: 01/07/23 08:10 Discharge Disposition Discharge Disposition: Home: No Services Discharge Diagnosis ACS (acute coronary syndrome) (I24.9) _ Discharge Medications Aspirin (aspirin 81 mg oral delayed release tablet)?81?Milligram?By Mouth?Daily dulaglutide (Trulicity Pen 1.5 mg/0.5 mL subcutaneous solution)?1.5?Milligram?SubcutaneousInjection?Every week?on Sundays Glimepiride (glimepiride 2 mg oral tablet)?1?tab(s)?2?Milligram?By Mouth?Daily Hydrochlorothiazide (hydrochlorothiazide 25 mg oral tablet)?25?Milligram?1?tablet?ByMouth?Daily Lisinopril (lisinopril 10 mg oral tablet)?10?Milligram?1?tablet?By Mouth?Daily Metformin (MetFORMIN (Eqv-Glucophage XR) 500 mg oral tablet, extended release)?2?tab(s)?1,000?Milligram?By Mouth?2 times a day Metoprolol (Metoprolol Tartrate 25 mg oral tablet)?0.5?tab(s)?12.5?Milligram?By Mouth?2 times a day?WITH FOOD Omeprazole (omeprazole 20 mg oral enteric coated capsule)?1?capsule?20?Milligram?By Mouth?Daily Rosuvastatin (rosuvastatin 40 mg oral tablet)?1?tab(s)?40?Milligram?By Mouth?Daily ? Medications Started Aspirin (aspirin 81 mg oral delayed release tablet)?81?Milligram?By Mouth?Daily Medications Discontinued None Doses Changed Lisinopril 5mg to 10mg once daily PCP Follow-Up/Heads-Up -Started aspirin 81mg daily -Home lisinopril changed from 5mg to 10mg daily -Please ensure patient is compliant with her medications Future Appointments Tuesday 2:30 PM EST ?? With: Jenn Schmitt GC Where: Genetics at [address] [address]- Status: Pending Hospital Course 62-year-old female with a history of HLD, HTN, and T2DM who presented to the ED after worsening chest discomfort that started on Wednesday 01/03. She had intermittent chest pressure associated with elevated heart rate and exertional dyspnea since her symptoms started. On 01/06 she felt as though therewas someone sitting on her chest and was unable to sleep at night, she took aspirin 325 mg and decided to come to the ED at [facility]. Initial evaluation in the ED included high sensitivity troponin of 16>9 and EKG which did not meet STEMI criteria, but had subtle ST changes in the inferior leads. 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 No clear lesion was noted in cardiac cath and LVEDP was normal. Her symptoms were thought to be secondary to SCAD to the distal PDA given her risk factors. Currently the patient denies chest pain or shortness of breath, and she is??hemodynamically stable for discharge. She is noted to be hypertensive in the 130-140s and hence her home antihypertensive regimen has been adjusted. Objective SCAD vs Takotsubo Cardiomyopathy - presented after not feeling well since Tuesday, with chest pressure and nausea -??aspirin and brilinta loaded - initial EKG at [facility] concerning for mild ST changes in the inferior leads; HST 16-9 -??Cath: no??clear lesion noted in the cath. Possible SCAD in distal PDA. LVEDP was normal ?? Recommendation: - Continue Aspirin 81 mg for 1 year - Continue home Metoprolol 12.5 mg daily - Follow up with PCP within 1-2 weeks ?? GERD -??Continue home??Omeprazole 20 mg daily ?? T2DM -??Continue home Trulicity and Metformin ?? HTN - Continue home Lisinopril??10 mg daily - Continue home HCTZ 25 mg daily - Continue home Metoprolol 12.5 mg BID ?? HLD - Continue home Rosuvastatin 40 mg daily Vital Signs?? Temperature: 98.2 DegF (01/08/23 12:00:00) Temperature Route: Oral (01/08/23 12:00:00) Pulse Rate: 84 bpm (01/08/23 10:40:00) Heart Rate Monitored: 72 bpm (01/08/23 12:00:00) Respiratory Rate: 16 br/min (01/08/23 12:00:00) Systolic Blood Pressure: 130 mm Hg (01/08/23 12:00:00) Diastolic Blood Pressure: 70 mm Hg (01/08/23 12:00:00) Blood pressure sites: Arm, left (01/08/23 12:00:00) Pulse Pressure: 60 mm Hg (01/08/23 12:00:00) Oxygen Saturation: 96 % (01/08/23 12:00:00) Mode of Delivery (Oxygen): Room air (01/08/23 12:00:00) ? . Physical Exam - GENERAL: Alert and oriented x 3. No acute distress. - HEENT: Normocephalic and atraumatic. No scleral icterus. No conjunctival pallor. - LUNGS: Clear to auscultation bilaterally. No wheezes, rales or rhonchi. - CARDIOVASCULAR: Regular rate and rhythm. Normal S1+S2??without murmurs. No JVD. - ABDOMEN: Soft, non-tender and non-distended. No palpable masses. - EXTREMITIES: No edema. Non-tender. - SKIN: No rashes or lesions. Warm. -??NEUROLOGIC: No focal neurological deficits. - PSYCHIATRIC: Appropriate mood and affect. Patient Education Titles Eating Heart-Healthy Foods?? Controlling High Blood Pressure?? Diabetes and Heart Disease?? Patient Instructions -You were admitted to [facility] for a concern for a heart attack and a tear in one ofyour coronary vessels. -Comprehensive cardiac workup including??echocardiogram, EKG, and??cardiac catheterization were unremarkable. -You were started on??Aspirin 81mg which you will be taking daily. This mediation works as a blood thinner and it??prevents clots from forming in your blood vessels. -You will continue taking??the same doses for your??home??blood pressure medications, except for Lisinopril which was increased from 5mg to 10mg daily. -Please follow up with your primary care physician within 1-2 weeks of discharge. -Please seek medical attention if you experience any chest pain, shortness of breath, or palpitations. Results Discharge Labs BLOOD COUNT & DIFF WBC 10.5 k/mm3 ()?? 01/08/2023 03:48 RBC 4.80 m/mm3 ()?? 01/08/2023 03:48 Hgb 13.8 Gm/dL ()?? 01/08/2023 03:48 Hct 40.9 % ()?? 01/08/2023 03:48 MCV 85.2 femtoliters ()?? 01/08/2023 03:48 MCH 28.8 pg ()?? 01/08/2023 03:48 MCHC 33.7 g/dL ()?? 01/08/2023 03:48 Platelet Count 392 k/mm3 ()?? 01/08/2023 03:48 RDW-SD 38.8 femtoliters ()?? 01/08/2023 03:48 MPV 8.2 femtoliters (Low)?? 01/08/2023 03:48 Nucleated RBC (Automated) 0.0 #/100 WBC'S ()?? 01/08/2023 03:48 Abs. NRBC 0.0 k/mm3 ()?? 01/08/2023 03:48 ?? CARDIAC Nt-Probnp 71 pg/mL ()?? 01/07/2023 12:36 ? CHEM GENERAL Sodium 139 mmol/L ()?? 01/08/2023 03:48 Potassium 4.3 mmol/L ()?? 01/08/2023 03:48 Chloride 102 mmol/L ()?? 01/08/2023 03:48 Bicarbonate Level 26 mmol/L ()?? 01/08/2023 03:48 Anion Gap 11 ()?? 01/08/2023 03:48 Glucose Level 127 mg/dL (High)?? 01/08/2023 03:48 Glucose, POC 117 mg/dL (High)?? 01/08/2023 12:03 Hemoglobin A1C (Monitoring) 6.7 % (High)?? 01/07/2023 12:36 BUN 11 mg/dL ()?? 01/08/2023 03:48 Creatinine-Blood 0.7 mg/dL ()?? 01/08/2023 03:48 Estimated GFR Creatinine 97 ML/MIN/1.73 M2 ()?? 01/08/2023 03:48 Calcium 9.2 mg/dL ()?? 01/08/2023 03:48 Phosphorus 4.0 mg/dL ()?? 01/08/2023 03:48 Magnesium 2.2 mg/dL ()?? 01/08/2023 03:48 Protein, Total 6.6 Gm/dL ()?? 01/08/2023 03:48 Albumin 4.2 Gm/dL ()?? 01/08/2023 03:48 AG Ratio 1.8 ()?? 01/08/2023 03:48 Alkaline Phosphatase 81 units/L ()?? 01/08/2023 03:48 AST (SGOT) 18 units/L ()?? 01/08/2023 03:48 ALT (SGPT) 18 units/L ()?? 01/08/2023 03:48 Bilirubin, Total 0.5 mg/dL ()?? 01/08/2023 03:48 ? LIPID STUDIES Cholesterol 112 mg/dL ()?? 01/07/2023 12:36 Triglycerides 124 mg/dL ()?? 01/07/2023 12:36 HDL Cholesterol 44 mg/dL ()?? 01/07/2023 12:36 LDL Cholesterol 43 mg/dL ()?? 01/07/2023 12:36 Non HDL Cholesterol 68 mg/dL ()?? 01/07/2023 12:36 ? URINE OTHER Est Creatinine Clearance 79.78 mL/min ()?? 01/08/2023 04:41 ? Echo 01/07: 1. The ventricle is normal in size. The left ventricular wall thickness is mildly increased. LV systolic function is normal with an estimated LVEF of 55- 65%. There are no regional wall motion abnormalities. Indeterminate diastolic function. 2. The right ventricle is normal in size and function. An accurate pulmonary artery pressure could not be obtained. 3. Biatrial size is normal. 4. There is no hemodynamically significant valvular disease. 5. The ascending aorta and aortic root are normal in size. There is mild plaque in the ascending aorta. ?? Patient seen and management discussed with attending, Dr. Harris ?? Flakita Jiménez??Jose Carlos Internal Medicine PGY-1 * Sandra Herrera RN: PERFORM Event Display: Patient Education/Instruction Authored Date: Inpatient Adult Discharge Instructions [place] [id number] Name: DANILO WINSTON : 1960 Visit: 01/07/2023 08:10:00 Current Date: 01/08/2023 13:21 Account: [id number] Inpatient Adult Discharge Instructions We would like to thank you for allowing us to assist you with your healthcare needs. The following includes patient education materials and information regarding your injury/illness. Our entire staffstrives to provide an excellent experience for our patients and their families. PLEASE ENSURE YOU FOLLOW-UP PER THE INSTRUCTIONS BELOW! ?? YOUR OPINION IS IMPORTANT TO US! Please complete the survey you may receive by mail or email. Your feedback will be used to make improvements to the healthcare experiences of our patients and their families. Surveys are administered by [employer] ?? If further treatment with your primary care physician or another doctor is recommended, it is important for you to keep the appointment. Call your primary care physician or return to the Emergency Department immediately if your condition worsens, fails to improve, or new symptoms develop. If you need to find a doctor, you can call [facility] [employer] Link for a referral at [phone] or toll free at [phone]) or log in to [email or web address] #[email or web address].. ?? [facility], in keeping with [facility] guidance, no longer requires face masks for staff, patientsor visitors in most situations. Similiar to time spent indoors at other locations, there is the chance that you were exposed to repiratory viruses during your time with us (such as flu or COVID-19). If you develop symptoms concerning for a viral respiratory infection, please seek testing (and treatment if indicated) from your medical provider or home test kit. ?? You can view and manage your care through the patient portal or by using a health care juan of your choosing. [employer] is a website that allows you to securely view your medical information including your hospital discharge summary, office visit summaries, medications and follow-up visits. You can also request appointments, renew medications, and request access to your medical information using a health care juan of your choosing, or just ask a question. You can enroll at [email or web address] or register during your next office visit. You have been discharged from [facility], Patient Care Unit: [facility]. If you have any questions regarding these instructions after you leave, please call us and we will be happy to assist you. [facility] Your Care Team Attending Physician Don Flores MD Discharging Providers Flakita Orlando MD Reason for Admission NSTEMI Your Diagnosis ACS (acute coronary syndrome) Tests Performed Below is a partial list of the tests performed during your hospitalization. You may have had other tests and procedures not included in this list. Please discuss all test results with your provider. CBC Comprehensive Metabolic Panel GLUCOSE POC Hemoglobin A1C (Monitoring) Lipid Panel Magnesium Level Phosphorus Level ProBNP Primary Care Provider Not on Staff, PCP Advance Directive Health Care Proxy on File No Discharge Vitals Temperature: 98.2 DegF Height: 170 cm Pulse Rate: 84 bpm Weight: 88.4 kg Respiratory Rate: 16 br/min Body Mass Index:??31.31 kg/m2??Critical Systolic Blood Pressure: 130 mm Hg Body surface area: 2.07 Diastolic Blood Pressure: 70 mm Hg ?? Oxygen Saturation: 96 % ?? Studies Pending All tests and labs ordered during this hospital stay have been completed unless listed below. Please discuss all pending results with your provider listed above in these instructions. ?? COVID-19 (2019 Novel Coronavirus) PCR What to do next Instructions From Your Doctor -You were admitted to [facility] for a concern for a heart attack and a tear in one ofyour coronary vessels. -Comprehensive cardiac workup including??echocardiogram, EKG, and??cardiac catheterization were unremarkable. -You were started on??Aspirin 81mg which you will be taking daily. This mediation works as a blood thinner and it??prevents clots from forming in your blood vessels. -You will continue taking??the same doses for your??home??blood pressure medications, except for Lisinopril which was increased from 5mg to 10mg daily. -Please follow up with your primary care physician within 1-2 weeks of discharge. -Please seek medical attention if you experience any chest pain, shortness of breath, or palpitations. Discharge Orders Scheduled Follow-Up Appointments Tuesday 2:30 PM EST ?? With: Jenn Schmitt GC Where: Genetics at [facility] [address] [address]- Status: Pending Discharge Medications DANILO WINSTON :1960 Visit Date:01/07/2023 Medications: Please continue your medications until treatment is completed or stopped by your provider. Medications not listed below should be discontinued. Discuss any questions related to medications with your provider. What How Much When Instructions Next Dose New Aspirin (aspirin 81 mg oral delayed release tablet) 81 Milligram Oral Daily Pickup at [facility] 01/09 9am Changed Hydrochlorothiazide (hydrochlorothiazide 25 mg oral tablet) 1 tab(s) Oral Daily 01/09 9am Changed Lisinopril (lisinopril 10 mg oral tablet) 1 tab(s) Oral Daily Pickup at [facility] 01/09 9am Changed Metformin (MetFORMIN (Eqv-Glucophage XR) 500 mg oral tablet, extended release) 2 tab(s) Oral Twice a day 01/09 9pm Changed Metoprolol (Metoprolol Tartrate 25 mg oral tablet) 0.5 tab(s) Oral Twice a day WITH FOOD ?? 01/08 9pm Changed dulaglutide (Trulicity Pen 1.5 mg/ 0.5 mL subcutaneous solution) 1.5 Milligram Subcutaneous Injection Every week on Sundays ?? 01/09 Unchanged Glimepiride (glimepiride 2 mg oral tablet) 1 tab(s) Oral Daily 01/09 9am Unchanged Miscellaneous Rx (Freestyle Lancets) Unchanged Miscellaneous Rx (Freestyle Litestrips) Unchanged Omeprazole (omeprazole 20 mg oral enteric coated capsule) 1 capsule Oral Daily 01/09 9am Unchanged Rosuvastatin (rosuvastatin 40 mg oral tablet) 1 tab(s) Oral Daily 01/09 9am Pharmacy Information [facility]: [address] [place], [place] [id number] [phone] ?? What How Much When Comments Stop Taking Simvastatin Oral Daily at Bedtime Test Results Below is a partial list of the most recent Laboratory test results done prior to this discharge. You may have had other tests and procedures not included in this list. Please discuss all test resultswith your provider. Est Creatinine Clearance - 79.78 mL/min (01/08/2023) CBC (01/08/2023) ???WBC - 10.5 k/mm3???RBC - 4.80 m/mm3???Hgb - 13.8 Gm/dL???Hct - 40.9 %???MCV - 85.2 femtoliters???MCH - 28.8 pg???MCHC - 33.7 g/dL???Platelet Count - 392 k/mm3???RDW-SD - 38.8 femtoliters???MPV - 8.2 femtoliters???Nucleated RBC (Automated) - 0.0 #/100 WBC'S???Abs. NRBC - 0.0 k/mm3 Comprehensive Metabolic Panel (01/08/2023) ???Sodium - 139 mmol/L???Potassium - 4.3 mmol/L???Chloride - 102 mmol/L???Bicarbonate Level - 26 mmol/L???Anion Gap - 11???Glucose Level - 127 mg/dL???BUN - 11 mg/dL???Creatinine-Blood - 0.7 mg/dL???Estimated GFR Creatinine - 97 ML/MIN/1.73 M2???Calcium - 9.2 mg/dL???Protein, Total - 6.6 Gm/dL???Albumin - 4.2 Gm/dL???AG Ratio - 1.8???Alkaline Phosphatase - 81 units/L???AST (SGOT) - 18 units/L???ALT (SGPT) - 18 units/L???Bilirubin, Total - 0.5 mg/dL GLUCOSE POC (01/08/2023) ???Glucose, POC - 117 mg/dL Hemoglobin A1C (Monitoring) (01/07/2023) ???Hemoglobin A1C (Monitoring) - 6.7 % Lipid Panel (01/07/2023) ???Cholesterol - 112 mg/dL???Triglycerides - 124 mg/dL???HDL Cholesterol - 44 mg/dL???LDL Cholesterol - 43 mg/dL???Non HDL Cholesterol - 68 mg/dL Magnesium Level (01/08/2023) ???Magnesium - 2.2 mg/dL Phosphorus Level (01/08/2023) ???Phosphorus - 4.0 mg/dL ProBNP (01/07/2023) ???Nt-Probnp - 71 pg/mL Allergies (NKA means No Known Allergies) NKA Problems Active Problems??(3) Family history of breast cancer?? Lobular carcinoma in situ (LCIS) of right breast, and ALH, 2013?? Obese class I?? Education Materials Below is the list of Educational Leaflet Providered with your Discharge Instructions. Eating Heart-Healthy Foods?? Controlling High Blood Pressure?? Diabetes and Heart Disease?? Valuables and Belongings I fully understand and agree that [facility] accepts no responsibility for all my personal property including clothing, toilet articles, radios, jewelry, dentures, hearing aids, rings, money, or any other property that is in my possession or is brought to me after admission. I understand certain valuables may be placed in a hospital safe for a short period of time. I understand that the hospital is not liable for loss or damage due to accident, fire, or other natural occurrence while said property is in the safe. I accept full responsibility for any personal property that I keep with me, and will not hold the hospital responsible in case of loss or disappearance. I acknowledge that i have been encouraged to send valuables and belongings home. ? Other Discharge Information ? Pulmonary Rehab Status?? Pulmonary Rehab Discharge Status?? Respiratory Rate: 16 br/min ? Common Emergency Awareness Tips IS IT A STROKE? Act FAST and Check for these signs: FACE Does the face look uneven? ARM Does one arm drift down? SPEECH Does their speech sound strange? TIME Call at any sign of stroke ?? Heart Attack Signs Chest discomfort: Most heart attacks involve discomfort in the center of the chest and lasts more than a few minutes, or goes away and comes back. It can feel like uncomfortable pressure, squeezing, fullness or pain. Discomfort in upper body: Symptoms can include pain or discomfort in one or both arms, back, neck, jaw or stomach. Shortness of breath: With or without discomfort. Other signs: Breaking out in a cold sweat, nausea, or lightheaded. Remember, MINUTES DO MATTER. If you experience any of these heart attack warning signs, call to get immediate medical attention! ?? Smoking can increase your chances of developing chronic health problems and can cause harmful effects to other family members in your house. If you smoke, you are strongly encouraged to quit. Please call [facility] [employer] Link at [phone] or [phone] ([phone]) or log in to [email or web address] for referrals to smoking cessation programs. ?? 931 Suicide & Crisis Lifeline is available 11/10 if you or someone you know needs to find a reason to keep living. By calling 486 you'll be connected to a skilled, trained counselor at a crisis center in your area. INPATIENT DISCHARGE INSTRUCTIONS SIGNATURE PAGE DANILO WINSTON Location:[facility] Registration Date and Time:01/07/2023 08:10 EDT Primary Care Physician: Not on Staff, PCP Attending Physician: Don Flores MD, I DANILO WINSTON, have received the above patient education materials/instructions and have verbalized understanding. If ambulance or transport services are being used I further acknowledge being given a choice of service. ?? If you need to contact me, please call me at this number: . Patient/Gel Coater Name: Patient/Gel Coater Signature: Relationship to Patient: Witness Name/Signature: Date: * Sandra Herrera RN: PERFORM Event Display: Patient Education Leaflets Authored Date: [id number] Aspirin Oral Tablet 81 mg ?? 4327-3 Aspirin Oral Tablet 81 mg Uses This medicine is used for the following purposes: ??? fever ??? heart attack ??? heart disease ??? inflammatory disease ??? pain ??? prevent blood clots ??? prevent stroke ??? stroke ??? prevent heart attack ?? Instructions Sit or stand upright for 10 minutes after taking the medicine. Do not lie down. Swallow with a full glass (8 oz) of water unless your doctor gives you different instructions. You may take with food to prevent stomach upset. Store at room temperature away from heat, light, and moisture. Do not keep in the bathroom. If you are using this medicine regularly, it is important to take each dose of medicine on time. Keep taking the medicine even if you feel well. If you forget to take a dose on time, take it as soon as you remember. If it is almost time for thenext dose, do not take the missed dose. Return to your normal schedule. Do not take 2 doses at one time. Drug interactions can change how medicines work or increase risk for side effects. Tell your healthcare providers about all medicines taken. Include prescription and oevo-puj-htmwhzs medicines, vitamins, and herbal medicines. Speak with your doctor or pharmacist before starting or stopping any medicine. Tell your doctor if symptoms do not get better or if they get worse. Talk to your doctor before taking other medicines, including aspirins and ibuprofen containing products. Speak to your doctor about which medicines are safe to use while you are on this medicine. ?? Cautions IMPORTANT: Children and teenagers should not use medications containing aspirin for cold and flu symptoms or chickenpox. Tell your doctor and pharmacist if you ever had an allergic reaction to a medicine. There is an increased risk of bleeding while on this medicine, please tell your doctor or nurse if you notice any excessive bleeding or bruising. Do not use the medication any more than instructed. If you drink more than a few alcoholic beverages each day, ask your doctor whether you should be onthis medicine. Avoid smoking while on this medicine. Smoking may increase your risk for stomach bleeding. This medicine passes into breast milk. Ask your doctor before . This medicine can hurt a new baby in the womb. If you become while on this medicine, tell your doctor immediately. Your doctor may switch you to a different medicine. ?? Side Effects The following is a list of some common side effects from this medicine. Please speak with your doctor about what you should do if you experience these or other side effects. ??? stomach upset or abdominal pain If you have any of the following side effects, you may be getting too much medicine. Please contactyour doctor to let them know about these side effects. ??? ringing in the ears Call your doctor or get medical help right away if you notice any of these more serious side effects: ??? severe or persistent abdominal pain ??? bleeding or bruising ??? coughing up blood or vomit that looks like coffee grounds ??? fever ??? swelling in the neck or throat ??? signs of kidney damage (such as change in urine color or bubbly urine) ??? bloody or dark, tarry stools A few people may have an allergic reaction to this medicine. Symptoms can include difficulty breathing, skin rash, itching, swelling, or severe dizziness. If you notice any of these symptoms, seek medical help quickly. ?? Extra Please speak with your doctor, nurse, or pharmacist if you have any questions about this medicine. ?? [email or web address] IMPORTANT NOTE: This document tells you briefly how to take your medicine, but it does not tell youall there is to know about it. Your doctor or pharmacist may give you other documents about your medicine. Please talk to them if you have any questions. Always follow their advice. There is a more complete description of this medicine available in Hungarian. Scan this code on your smartphone or tablet or use the web address below. You can also ask your pharmacist for a printout. If you have any questions, please ask your pharmacist. The display and use of this drug information is subject to Terms of Use. Copyright(c) 2022 [employer]. ?? [employer]. All rights reserved. This information is not intended as a substitute for professional medical care. Always follow your healthcare professional's instructions. ?? * Sandra Herrera RN: PERFORM Event Display: Patient Education Leaflets Authored Date: [id number] Aspirin Oral Tablet 81 mg ?? 4327-3 Aspirin Oral Tablet 81 mg Uses This medicine is used for the following purposes: ??? fever ??? heart attack ??? heart disease ??? inflammatory disease ??? pain ??? prevent blood clots ??? prevent stroke ??? stroke ??? prevent heart attack ?? Instructions Sit or stand upright for 10 minutes after taking the medicine. Do not lie down. Swallow with a full glass (8 oz) of water unless your doctor gives you different instructions. You may take with food to prevent stomach upset. Store at room temperature away from heat, light, and moisture. Do not keep in the bathroom. If you are using this medicine regularly, it is important to take each dose of medicine on time. Keep taking the medicine even if you feel well. If you forget to take a dose on time, take it as soon as you remember. If it is almost time for thenext dose, do not take the missed dose. Return to your normal schedule. Do not take 2 doses at one time. Drug interactions can change how medicines work or increase risk for side effects. Tell your healthcare providers about all medicines taken. Include prescription and ozna-dvs-sajyurr medicines, vitamins, and herbal medicines. Speak with your doctor or pharmacist before starting or stopping any medicine. Tell your doctor if symptoms do not get better or if they get worse. Talk to your doctor before taking other medicines, including aspirins and ibuprofen containing products. Speak to your doctor about which medicines are safe to use while you are on this medicine. ?? Cautions IMPORTANT: Children and teenagers should not use medications containing aspirin for cold and flu symptoms or chickenpox. Tell your doctor and pharmacist if you ever had an allergic reaction to a medicine. There is an increased risk of bleeding while on this medicine, please tell your doctor or nurse if you notice any excessive bleeding or bruising. Do not use the medication any more than instructed. If you drink more than a few alcoholic beverages each day, ask your doctor whether you should be onthis medicine. Avoid smoking while on this medicine. Smoking may increase your risk for stomach bleeding. This medicine passes into breast milk. Ask your doctor before . This medicine can hurt a new baby in the womb. If you become while on this medicine, tell your doctor immediately. Your doctor may switch you to a different medicine. ?? Side Effects The following is a list of some common side effects from this medicine. Please speak with your doctor about what you should do if you experience these or other side effects. ??? stomach upset or abdominal pain If you have any of the following side effects, you may be getting too much medicine. Please contactyour doctor to let them know about these side effects. ??? ringing in the ears Call your doctor or get medical help right away if you notice any of these more serious side effects: ??? severe or persistent abdominal pain ??? bleeding or bruising ??? coughing up blood or vomit that looks like coffee grounds ??? fever ??? swelling in the neck or throat ??? signs of kidney damage (such as change in urine color or bubbly urine) ??? bloody or dark, tarry stools A few people may have an allergic reaction to this medicine. Symptoms can include difficulty breathing, skin rash, itching, swelling, or severe dizziness. If you notice any of these symptoms, seek medical help quickly. ?? Extra Please speak with your doctor, nurse, or pharmacist if you have any questions about this medicine. ?? [email or web address] IMPORTANT NOTE: This document tells you briefly how to take your medicine, but it does not tell youall there is to know about it. Your doctor or pharmacist may give you other documents about your medicine. Please talk to them if you have any questions. Always follow their advice. There is a more complete description of this medicine available in Hungarian. Scan this code on your smartphone or tablet or use the web address below. You can also ask your pharmacist for a printout. If you have any questions, please ask your pharmacist. The display and use of this drug information is subject to Terms of Use. Copyright(c) 2022 [employer]. ?? [employer]. All rights reserved. This information is not intended as a substitute for professional medical care. Always follow your healthcare professional's instructions. ?? * Sandra Herrera RN: PERFORM Event Display: Patient Education Leaflets Authored Date: [id number] Having Cardiac Catheterization ?? 37930 Having Cardiac Catheterization You may have had chest pain (angina), dizziness, or other symptoms of heart trouble. To help diagnose your problem, your healthcare provider??may advise a cardiac catheterization. This is a procedurethat looks for a blockage or narrow area in the arteries around the heart.??These can cause chest pain or a heart attack if not treated. It can also be used to evaluate other problems with your heart. This common procedure may also be used to treat a heart problem. It may be done as a planned procedure if you've had chest pain in the past. Or it may be done right away to treat a suspected heart attack. The catheter may be placed in the arm or the groin. Before the procedure ??? Tell your healthcare team what medicines you take and about any allergies you have. ??? Follow any directions you're given for not eating or drinking before the procedure. ?? During the procedure ??? Hair may be trimmed where the catheter will be inserted. This may be in your leg (groin), wrist, or arm. ??? You may be given medicine to relax before the procedure. ??? You'll be given a local anesthetic to prevent pain at the insertion site. ??? A healthcare provider inserts a tube (sheath) into a blood vessel in your groin or arm. ??? Through the sheath, a long, thin tube called a catheter is placed inside the artery. The catheter is then guided toward your heart under X-ray guidance. ??? The catheter can then be used to measure pressures in the heart. It can take blood samples if needed. It can also be used to inject contrast into the heart arteries to look for b lockages. This is called angiography. ?? After the procedure ??? Your healthcare providers will tell you how long to lie down and keep the insertion site still. ??? If the insertion site was in your groin, you may need to lie down with yourleg still for up to 6 or more hours. A stitch (suture) or closure device such as a collagen plug??may be used on the artery site to close the site. If so, you may be able to move sooner. This dependson any bleeding that occurs. ??? If your arm was used, you may need to wear a special type of immobilizing device and pressure bandage for a few hours after the procedure. ??? A nurse will check the insertion site and your blood pressure. ??? You may be asked to drink fluid. This is to help flush the contrast liquid out of your system. ??? Have someone drive you home from the hospital. ??? It???snormal to find a small bruise or lump at the insertion site. This should go away in a few weeks. ?? When to call your healthcare provider Call your healthcare provider??right away if you have any of these: ??? Pain, swelling, redness, warmth, bleeding, or fluid leaking at the insertion site ??? New, severe back pain or chest pain ??? Inability to pee ??? Blood in your urine, black or sticky stools, or any other kind of bleeding ??? Fever of 100.4??F??( 38.0??C) or higher, or as advised by your provider ?? Call 911 Call 911 if you have any of these: ??? Chest pain or pressure, nausea or vomiting, profuse sweating, dizziness, or fainting ??? Shortness of breath or trouble breathing ??? Severe pain, coldness, or a bluish color in the leg or arm where the catheter was inserted ??? Sudden numbness or weakness in arms, legs, or face, or difficulty speaking ??? The puncture site swells up very fast ??? Bleeding from the puncture site doesn't slow down when you press on it firmly ?? Last Reviewed Date: 2021 ?? 9588-6689 [employer]. All rights reserved. This information is not intended as a substitute for professional medical care. Always follow your healthcare professional's instructions. ?? Cardiac catheterization study * Event Display: Cardiac Bean Sorter Report Authored Date: Cardiac Diagnostic Report Demographics Patient Name LEDWITH DANILO Gender Female [employer] Room Number M312 Height 66.93 inches Date of 1960 Weight 198.42 pounds Age 62 year(s) BSA 2.01 m2 Accession Number [id number] BMI 31.14 kg/m2 Referring Physician Heriberto Date of 01/07/2023 Larry XIAO Study Performing Physician Reagan Bowman MD Fellow Heriberto Juarez MD Interventional Physician Procedure Procedure Type Diagnostic procedure:Coronary Angiography with [facility] Diagnostic Catheterization Status:Emergency Indications Indications: Inferior wall AK. Clinical History Clinical Evaluation Leading to Procedure - The patient's CAD presentation was assessed as: STEMI. - The patient's anginal syndrome during the past two weeks was assessed as: Class IV according to the [place] Cardiovascular Society Classification System (CCS). [facility] Risk Factors The patient risk factors include:treated hypercholesterolemia, treated hypertension, orally-treated diabetes mellitus and dyslipidemia. Additional Clinical History:62 year old female with hx of HTN, HLD, DM type ll who presented to [facility] with stuttering chest pressure that started on Tuesday. Her EKG showed subtle ST elevations in the inferior leads. label sewer was activated for an emergent coronary angiogram and possible PCI. Procedure Data Procedure Date Date: 01/07/2023Start: 08:14End: 08:34 The procedure was explained in detail to the patient. Risks, complications and alternative treatments were reviewed. Written consent was obtained. Entry Locations - Retrograde Percutaneous access was performed through the Right Radial artery. A 6 Fr sheath was inserted. Hemostasis was successfully obtained using TR Band. Closure Comments: 13cc. Procedure Medications - Ticagrelor P.O. 180 mg. - Versed (Midazolam) I.V. 1 mg. - Fentanyl I.V. 50 mcg. - Oxygen NC 2 l/min. - Lidocaine 2% S.C. Right Wrist 2 ml. - Nitroglycerin I.A. 200 mcg. - 0.9NS I.V. bolus 250 ml. - Heparin I.V. 3000 units. Sedation: My intra-service moderate sedation time was: from 8:15 to 8:31. Refer to procedural log for detailed chronological information. Contrast Material - Omnipaque 20 ml Diagnostic Catheters - A5F JL 3.5 DXTERITY DIAGNOSTIC CATHETERwas used for: Left coronary angiography. - A6F JR 4.0 LAUNCHER GUIDING CATHETERwas used for: Left heart catheterization. - A6F JR 4.0 LAUNCHER GUIDING CATHETERwas used for: Right coronary angiography. Fluoroscopy Time: Diagnostic: 1:38 minutes. Total: 1:38 minutes. Fluoroscopy Dose: Diagnostic: 123 mGy. Total: 123 mGy. Dose Area Product:Diagnostic: 8720 mGy/cm2. Total: 8720 mGy/cm2. Procedure Narrative Timeout was performed prior to the procedure. Right radial arterial access was obtained using a 6 Fr radial sheath. Selective left coronary angiogram was performed using a 5 Fr JL 3.5 catheter. Selective right coronary angiography was performed using a 6 Fr JR4 guide catheter. Left heart catheterization was performed using a 6 Fr JR4 guide catheter. Hemostasis was achieved using a TR band. Hemodynamics Condition: Rest O2 Consumption: Estimated: 196.89Heart Rate: 81 bpm Pressures (mmHg) +-----+ + !Site !Pressure ! +-----+ + !AO !117/72 (92)! +-----+ + !LV !125/2 ,6 ! +-----+ + !AO !122/71 (95)! +-----+ + !LV !122/1 ,8 ! +-----+ + Valve Gradients and Areas +------+----+----+----+-----+----+------+ !Valve !Peak!Mean!Area!Index!Flow!Source! +------+----+----+----+-----+----+------+ !Aortic!0 !0 ! ! ! ! ! +------+----+----+----+-----+----+------+ !Aortic!0 !0 ! ! ! ! ! +------+----+----+----+-----+----+------+ Shunts Oxygen Values O2 Consumption 196.89 Conclusions Diagnostic Summary Coronary angiogram showed: 1. Right dominant circulation. 2. Left main is short and is angiographically normal. 3. LAD is a large size vessel with mild tortuosity and is angiographically normal. 4. LCx is a large size vessel with mild tortuosity and is angiographically normal. 5. RCA is a large size vessel. RPDA tapers distally into a small size vessel. 6. LVEDP is 8 mmHg. Conclusion: No angiographic evidence of obstructive coronary artery disease. Diagnostic Recommendations Echocardiogram to assess LV function and wall motion abnormalities. If her echocardiogram shows inferior wall motion abnormalities, this could potentially be explained by SCAD of the distal RPDA. If her LV wall motion is normal then we need to rule out other non-cardiac causes for her symptoms. Echocardiogram would also be helpful in ruling out Takustubo cardiomyopathy. Signatures * Event Display: Cardiac Bean Sorter Report Authored Date: Admission evaluation note * Amy Becerra DO: MODIFY, MODIFY, MODIFY, MODIFY, MODIFY, MODIFY, MODIFY, MODIFY, PERFORM, MODIFY, MODIFY, MODIFY, MODIFY Event Display: Admission Note Authored Date: Patient: ??DANILO WINSTON ? Age:??62 Years?Sex:??Female?:??1960?? Chief Complaint/Reason for Consultation Chest Pain History of Present Illness Danilo is a 62 y/o F with a PMHx of HLD, HTN, and T2DM who presented to the ED after worsening chestdiscomfort. She states that starting on Wednesday 01/03, she was not feeling well . She states that when she checked her watch, her HR's were in the 130's. She also checked her pulse and found similar rates. On Tuesday, she went to urgent care as she started to have chest pressure. She states that she struggled to take a deep breath and couldn't exert herself as she would get tachy and pressure in the chest.??But she states that nothing really came of it . She ended up going to her PCP on , where they did and EKG and trops and both were fine . They were to set him up for an echo as well. Last night, she felt as though there was someone sitting on her chest and she was unable to sleep at night. She described this discomfort as chronic and dull. She notes that she did have some nausea with one episode of emesis. She took aspirin 325 mg and??decided to come to the ED. Pt initially presented to [facility]. There labs showed, CBC: WBC 15.1, otherwise WNL, BMP within normal limits, HST 16???9, TSH 1.06, negative flu, RSV, COVID. ??Vitals showed blood pressure 145/85, heart [id number], respiratory rate: 21, afebrile. EKG??did not meet STEMI criteria, but had subtle ST changes inthe inferior leads, but was transferred to [facility] for [facility] level of care.??She was loaded with Brilinta and brought straight to [facility]. No clear lesion noted in the cath. Possible SCAD in distal PDA. LVEDP was normal. Brought to [facility] after this. At bedside, she denies CP, SOB, abdominal pain, or urinary symptoms. No cardiac hx personally or in family. No??smoking hx, alcohol use, or recreational drug use.?? Review of Systems ROS is negative except for what has been written in the subjective. Objective Vital Signs?? Temperature: 98.2 DegF (01/07/23 09:03:00) Temperature Route: Oral (01/07/23 09:03:00) Pulse Rate: 84 bpm (01/07/23 09:03:00) Heart Rate Monitored: 81 bpm (01/07/23 09:00:00) Respiratory Rate: 16 br/min (01/07/23 09:03:00) Systolic Blood Pressure: 128 mm Hg (01/07/23 09:03:00) Diastolic Blood Pressure:??101 mm Hg??High (01/07/23 09:03:00) Blood pressure sites: Arm, left (01/07/23 09:03:00) Mean Arterial Pressure: 110 mm Hg (01/07/23 09:03:00) Pulse Pressure: 27 mm Hg (01/07/23 09:03:00) Oxygen Saturation: 98 % (01/07/23 09:00:00) Mode of Delivery (Oxygen): Room air (01/07/23 09:00:00) ? Intake/Output? No Data Available ? Physical Exam General: Patient in no acute distress?? Respiratory: bilateral equal air entry, clear to auscultation with no wheezes or crackles. Adequaterespiratory rate and effort on room air.?? CVS: regular rate and rhythm, S1 and S2 present, no murmurs, rubs or gallops. No JVD.?? Abdomen: soft, non tender, non distended, bowel sounds present, no organomegaly.?? Extremities: no cyanosis, pulses present and equal bilaterally. . No edema noted b/l.?? Neuro: alert and oriented x3. Psych: Normal mood and affect?? Assessment/Plan Danilo is a 62 y/o F with a PMHx of HLD, HTN, and T2DM who presented to the ED after worsening chestdiscomfort. Concern for ST changes on EKG, brought straight to [facility]. Found to have clean coronary's, but there was concern for SCAD. Admitted to [facility] for ongoing tx. ?? ?SCAD vs Takotsubo Cardiomyopathy - presented after not feeling well since Tuesday, with chest pressure and nausea -??aspirin and brilinta loaded - initial EKG at [facility] concerning for mild ST changes in the inferior leads; HST 16-9 -??Cath: no??clear lesion noted in the cath. Possible SCAD in distal PDA. LVEDP was normal ?? Plan: - Continue Aspirin 81 mg for 1 year - Continue Brilinta for 1 month - Continue home Metoprolol 12.5 mg daily - echo - cardiac rehab - f/u lipid panel, A1C ?? GERD - on Omeprazole 20 mg daily at home - will conntinue Pantoprazole 20 mg daily here ?? T2DM - Hold home Trulicity and Metformin while inpt - Insulin SS +??POC ?? HTN - Continue home Lisinopril 5 mg daily - Continue home HCTZ 25 mg daily - Continue home Metoprolol 12.5 mg BID ?? HLD - Continue home Rosuvastatin 40 mg daily ?? Quality Measures: Code Status: Full Code Diet: Cardiac DVT ppx: Lovenox after TR band removed Med Rec per external hx? Patient care was discussed with ??Sandra Becerra, DO Internal Medicine, PGY2 Pager: [phone] ?? Histories Allergies Allergies ?(Active and Proposed Allergies Only) NKA? (Severity: Unknown severity, Onset: Unknown) ? Past Medical History/Problem List Active Problems??(3) Family history of breast cancer Lobular carcinoma in situ (LCIS) of right breast, and [place], 2012 Obese class I ? Past Surgical History Breast lumpectomy, right: 2013 Biopsy of breast, left / benign: 2013 Biopsy of breast, right / FEA: 2013 Biopsy of breast, left / benign: 2009 ? Social History Alcohol Details:??Use: Never. Exercise Details:??Regular exercise: Yes. Nutrition/Health Details:??Diet: Regular. ??Caffeine intake amount: coffee 2 cups a day. Substance Abuse Details:??Use: Never. Tobacco Details:??Never smoker ? Family History Mother (Diagnosed age 30): Cancer of breast Father: Cancer of lung Brother (Diagnosed age 56): Pancreatic cancer ? Travel History Travel Outside [facility]: No ?? Medications Home Medications dulaglutide (Trulicity Pen 1.5 mg/0.5 mL subcutaneous solution)?INJECT [address]OUS ROUTE ONCE A WEEK 90 DAYS Glimepiride (glimepiride 2 mg oral tablet)?1?tab(s)?2?Milligram?By Mouth?Daily Hydrochlorothiazide (hydrochlorothiazide 25 mg oral tablet)?25?Milligram?1?tablet?ByMouth?Daily Lisinopril (lisinopril 5 mg oral tablet)?5?Milligram?1?tablet?By Mouth?Daily Metoprolol (Metoprolol Tartrate 25 mg oral tablet)?TAKE 1/2 TABLET BY MOUTH TWICE DAILY WITH FOOD Omeprazole (omeprazole 20 mg oral enteric coated capsule)?1?capsule?20?Milligram?By Mouth?Daily Rosuvastatin (rosuvastatin 40 mg oral tablet)?1?tab(s)?40?Milligram?By Mouth?Daily ? Inpatient Medications Medications (10) Active SCHEDULED: (7) Aspirin 81 mg EC Tablet (aspirin 81 mg oral delayed release tablet) ??81 mg, By Mouth, Daily Hydrochlorothiazide 25 mg Tablet (hydrochlorothiazide 25 mg oral tablet) ??25 mg, By Mouth, Daily Insulin Lispro 100 units/mL Inj (3mL) (Insulin LISPRO Sliding Scale) ??2-10 units, Subcutaneous Injection, 3 times a day before meals Lisinopril 5 mg Tablet (lisinopril 5 mg oral tablet) ??5 mg, By Mouth, Daily Metoprolol 25mg Tablet (metoprolol 25 mg oral tablet) ??12.5 mg, By Mouth, 2 times a day Pantoprazole 40 mg EC Tablet (pantoprazole 40 mg oral delayed release tablet) ??40 mg, By Mouth, Daily Rosuvastatin 20 mg Tablet (rosuvastatin 40 mg oral tablet) ??40 mg, By Mouth, Daily CONTINUOUS: (0) PRN: (3) Bisacodyl 10 mg Suppository (Bisacodyl Supp) ??10 mg 1 supp, Rectally, 2 times a day Docusate Sodium 10 mg/mL Liquid UD (Colace Liquid) ??100 mg 10 mL, By Mouth, 2 times a day Magnesium Hydroxide 8% Susp UD (Milk of Magnesia Liquid) ??30 mL, By Mouth, 2 times a day ? Results Recent Labs BLOOD COUNT & DIFF WBC 15.1 k/mm3 (High)?? 01/07/2023 06:43 RBC 4.97 m/mm3 ()?? 01/07/2023 06:43 Hgb 14.6 Gm/dL ()?? 01/07/2023 06:43 Hct 41.8 % ()?? 01/07/2023 06:43 MCV 84.1 femtoliters ()?? 01/07/2023 06:43 MCH 29.4 pg ()?? 01/07/2023 06:43 MCHC 34.9 g/dL ()?? 01/07/2023 06:43 Platelet Count 389 k/mm3 ()?? 01/07/2023 06:43 RDW-SD 38.5 femtoliters ()?? 01/07/2023 06:43 MPV 8.4 femtoliters (Low)?? 01/07/2023 06:43 Nucleated RBC (Automated) 0.0 #/100 WBC'S ()?? 01/07/2023 06:43 Abs. NRBC 0.0 k/mm3 ()?? 01/07/2023 06:43 Abs. Neut 10.1 k/mm3 (High)?? 01/07/2023 06:43 Abs. Lymph 3.0 k/mm3 ()?? 01/07/2023 06:43 Abs. [place] 1.6 k/mm3 (High)?? 01/07/2023 06:43 Abs. Eo 0.2 k/mm3 ()?? 01/07/2023 06:43 Abs. Baso 0.1 k/mm3 ()?? 01/07/2023 06:43 Neut % 67.0 % ()?? 01/07/2023 06:43 Lymph % 19.7 % ()?? 01/07/2023 06:43 [place] % 10.8 % (High)?? 01/07/2023 06:43 Eos % 1.6 % ()?? 01/07/2023 06:43 Baso % 0.5 % ()?? 01/07/2023 06:43 Imm Gran 0.4 % ()?? 01/07/2023 06:43 Abs. Imm Gran 0.1 k/mm3 ()?? 01/07/2023 06:43 ?? CARDIAC High Sensitivity Troponin (HSTnT) 9 ng/L ()?? 01/07/2023 06:43 ?? CHEM GENERAL Sodium 134 mmol/L ()?? 01/07/2023 06:43 Potassium 4.3 mmol/L ()?? 01/07/2023 06:43 Chloride 98 mmol/L ()?? 01/07/2023 06:43 Bicarbonate Level 23 mmol/L ()?? 01/07/2023 06:43 Anion Gap 13 ()?? 01/07/2023 06:43 Glucose Level 120 mg/dL (High)?? 01/07/2023 06:43 Glucose, POC 103 mg/dL (High)?? 01/07/2023 09:29 BUN 13 mg/dL ()?? 01/07/2023 06:43 Creatinine-Blood 0.6 mg/dL ()?? 01/07/2023 06:43 Estimated GFR Creatinine 101 ML/MIN/1.73 M2 ()?? 01/07/2023 06:43 Calcium 9.7 mg/dL ()?? 01/07/2023 06:43 ?? HEME OTHER Hold Blue Top SPECIMEN DISCARDED AFTER 4 HOURS. ()?? 01/07/2023 06:43 ?? MISC. CHEMISTRY Hold Gel Top SPECIMEN DISCARDED AFTER 1 WEEK ()?? 01/07/2023 06:43 Hold Fuller Top SPECIMEN DISCARDED AFTER 1 WEEK ()?? 01/07/2023 06:43 ?? URINE OTHER Est Creatinine Clearance 93.08 mL/min ()?? 01/07/2023 07:12 ?? VIROLOGY Influenza A PCR NEGATIVE ()?? 01/07/2023 07:11 Influenza B PCR NEGATIVE ()?? 01/07/2023 07:11 RSV PCR NEGATIVE ()?? 01/07/2023 07:11 COVID-19 PCR Specimen Source NASAL ()?? 01/07/2023 07:11 COVID-19 PCR Result NEGATIVE ()?? 01/07/2023 07:11 ? Urinalysis?? No qualifying data available. ? Blood Gases?? No qualifying data available. ?? Uric/LDH?? No qualifying data available. ? US Heart * Event Display: Echocardiogram - Complete Authored Date: Transthoracic Echocardiography Report (TTE) Patient Demographics Patient Name DANILO WINSTON Date of Study 01/07/2023 Corporate Gender Female Facility Race Ethnicity Date of 1960 Height: 66.93 inches Age 62 year(s) Weight: 198.42 pounds Accession Number [id number] BSA: 2.01 m2 Room Number [id number] BMI: 31.14 kg/m2 Referring Physician Hernan Reyes DO Interpreting Physician Brown Cheng MD Bridge Inspector Starr Ta [facility] Indications Chest pain. Clinical History HTN HLD DM Obesity Study Data Type of Study TTE procedure:Echo Complete-Doppler, Colorflow, M-Mode. Study Date01/07/2023 Start Time: 04:19 PM Study Location: [facility] [place] Adult Echo Study Status: ICU/CCU Patient Status: Routine Technical Quality: Adequate Blood Pressure:130/89 mmHg EKG: Sinus tachycardia HR: 98 bpm 2D Measurements LV Diastolic Dimension: 4.3 cm LV Systolic Dimension: 2.8 cm LV Septum Diastolic: 1.4 cm LV PW Diastolic: 1.2 cm AO Root Dimension: 2.9 cm LA Dimension: 3.6 cm LA ESV (BP):43.2 ml LVOT Stroke Volume: 62.31 ml LA ESV Index: 21 ml/m2 Stroke Volume Index31 ml/m2 LVOT: 2.1 cm Cardiac Index:3.04 l/min/m2 Ascending Aorta:3.2 cm Doppler Measurements AV Peak Velocity: 154 cm/s MV Peak E-Wave: 78.5 cm/s AV Peak Gradient: 9.49 mmHg MV Peak A-Wave: 92 cm/s AV Mean Gradient: 5 mmHg MV E/A Ratio: 0.85 AV VTI:24.6 cm LVOT Peak Velocity: 109 cm/s LVOT VTI18 cm MV Deceleration Time: 185 msec AV Area (Continuity):2.53 cm2 PV Peak Velocity: 99.5 cm/s PV Peak Gradient: 3.96 mmHg E' Septal Velocity: 7.72 cm/s E' Lateral Velocity: 8.38 cm/s E/Med E':10.95517 E/Lat E':[id number] Cardiac Anatomy Left Ventricle/Interventricular Septum The ventricle is normal in size. The left ventricular wall thickness is mildly increased. LV systolic function is normal with an estimated LVEF of 55-65%. There are no regional wall motion abnormalities. Indeterminate diastolic function. Left Atrium/Interatrial Septum The left atrium is normal in size. Aortic Valve The aortic valve is trileaflet and normal in structure and function. There is no aortic stenosis or insufficiency. Mitral Valve The mitral valve opening is normal. There is trivial mitral regurgitation. Aorta The ascending aorta and aortic root are normal in size. There is mild plaque in the ascending aorta. Right Ventricle The right ventricle is normal in size and function. Right Atrium The right atrium is normal in size. Pulmonic Valve The pulmonic valve is poorly visualized. There is no significant pulmonic regurgitation. Tricuspid Valve The tricuspid valve leaflet opening is normal. There is trace tricuspid valve regurgitation. Pumonary Artery An accurate pulmonary artery pressure could not be obtained. Venous Structures The inferior vena cava size is normal with normal inspiratory collapse. The central venous pressure estimation is 3 mmHg. Pericardium/Extracardiac There is an epicardial fat pad present. Summary 1. The ventricle is normal in size. The left ventricular wall thickness is mildly increased. LV systolic function is normal with an estimated LVEF of 55-65%. There are no regional wall motion abnormalities. Indeterminate diastolic function. 2. The right ventricle is normal in size and function. An accurate pulmonary artery pressure could not be obtained. 3. Biatrial size is normal. 4. There is no hemodynamically significant valvular disease. 5. The ascending aorta and aortic root are normal in size. There is mild plaque in the ascending aorta. Comparison No prior study available for comparison. Signature * Event Display: Echocardiogram - Complete Authored Date: Cardiology * Event Display: Cardiac Rhythm Strips Authored Date: * Event Display: Cardiac Rhythm Strips Authored Date: Hospital Progress note * Crissy Denson RN: PERFORM, SIGN, VERIFY Event Display: Progress Note Hospital Authored Date: Patient: DANILO WINSTON Age: 62 years Sex: Female : 1960 Associated Diagnoses: None Author: Jarett MARTINEZ, Crissy Findings Problem Related to Alteration in Cardiac Function (new) : Alteration in Cardiac Function/new 01/08/2023 5:00 EDT Alteration in Cardiac Status Related to ACS, Cardiac Procedure, Chest pain Goals & Outcomes, Cardiac Status Pt will resume/maintain adequate cardiac output, Pt will resume/maintain adequate hemodynamic status, Pt will resume/maintain adequate respiratory function, Pt will resume/maintain intact neuro function, Pt will maintain adequate GI/ function appropriate for pt, Pt will maintain adequate nutrition status, Pt/caregiver will state understanding of diagnosis, Pt/caregiver will state strategies to reduce risk factors, Pt will maintain adequate tissue oxygenation/ventilation, Pt will state pain at procedure site to be tolerable Cardiac Interventions Implemented Assess/monitor cardiac status, Assess/monitor neuro status, Assess/monitor respiratory status, Call/Report variances in ECG to provider, Document & Monitor O2 Sats; Administer O2 as ordered, Ensure adequate caloric intake, Monitor & document daily weight, Obtain 12 Lead ECG and CXR as ordered, Teach/encourage deep breath & cough exercises, Monitor O2 sats & end tidal CO2; treat as prescribed, Assess for chest pain, document characteristics, Bed Rest during periods of chest discomfort, Document interventions & what relieved chest pain, Monitor for anxiety, shortness of breath, diaphoresis, Monitor VS with each episode of chest pain, Pre/post cath guideline Goals/Interventions, Cardiac Yes Cardiac, Problem Start 01/07/2023 8:00 Reviewed Plan with, Cardiac Status Patient Patient Progression, Cardiac Status Plan Initiation . Evaluation P - see plan of care I - as per plan of care E - Pt is A&Ox4 and independent. VSS on room air. Denies pain, CP, and SOB. NSR per tele. LungsCTA. BS x4. RT radial cath site is stable with no signs of oozing or hematoma noted. + peripheral pulses. Please see MAR for meds given. Please see CIS and i-view for VS, I&O's, and further detailed assessment. Plan of care reviewed w/pt - questions asked and answered. Safety maintained and call greene within reach. Will notify MD of any changes. . * Gio MARTINEZ, Morenita: SIGN, PERFORM, SIGN, VERIFY, SIGN, MODIFY, MODIFY Event Display: Progress Note Hospital Authored Date: [id number] Patient: DANILO WINSTON [facility]: [id number] Age: 62 years Sex: Female : 1960 Associated Diagnoses: None Author: Morenita Powers RN Findings Problem Related to Alteration in Cardiac Function (new) : Alteration in Cardiac Function/new 01/07/2023 8:00 EDT Alteration in Cardiac Status Related to ACS, Chest pain Goals & Outcomes, Cardiac Status Pt will resume/maintain adequate cardiac output, Pt will resume/maintain adequate hemodynamic status, Pt will resume/maintain adequate respiratory function, Pt will resume/maintain intact neuro function, Pt will maintain adequate GI/ function appropriate for pt, Pt will maintain adequate nutrition status, Pt/caregiver will state understanding of diagnosis, Pt/caregiver will state strategies to reduce risk factors, Pt will maintain adequate tissue oxygenation/ventilation Cardiac Interventions Implemented Assess/monitor cardiac status, Assess/monitor neuro status, Assess/monitor respiratory status, Assess for tolerance of IV infusions; verify rate & dose, Call/Report variances in ECG to provider, Document & Monitor O2 Sats; Administer O2 as ordered, Ensure adequate caloric intake, If no bowel movement in 3 days activate bowel regime, Monitor & document daily weight, Monitor anticoagulation values, Monitor ECG w/administration of antiarrhythmics (CO 13.420), Obtain 12 Lead ECG and CXR as ordered, Prep pt for treatments & procedures, Teach/encourage deep breath & cough exercises, Team conversation regarding appropriate level of care, Turn & reposition Q2 hours per activity restrictions, Use adjunctive therapies per Standards of Practice, Administer & titrate vasoactives/IV meds as ordered, Monitor O2 sats & end tidal CO2; treat as prescribed, Assess for chest pain, document characteristics, Bed Rest during periods of chestdiscomfort, Document interventions & what relieved chest pain, Monitor for anxiety, shortness of breath, diaphoresis, Monitor VS with each episode of chest pain BH Goals/Interventions, Cardiac Yes Cardiac, Problem Start 01/07/2023 8:00 Reviewed Plan with, Cardiac Status Patient Patient Progression, Cardiac Status Plan Initiation . Falls Risk Assessment : Falls Data 01/07/2023 10:02 EDT Fall Elimination Not Done: Task Duplication (Not Done) Fall Agitation/Anxiety/Depression Not Done: Task Duplication (Not Done) Fall Related Sign/Symptom/Condition Not Done: Task Duplication (Not Done) Fall Cognitive Limitations Not Done: Task Duplication (Not Done) Fall Sensory and Physical Function Not Done: Task Duplication (Not Done) Fall High Risk for Injury Not Done: Task Duplication (Not Done) Fall Risk Level Not Done: Task Duplication (Not Done) . Nursing Data Vital Signs : VITAL SIGNS SECTION 01/07/2023 9:03 EDT Temperature 98.2 DegF Temperature Route Oral Pulse Rate 84 bpm Respiratory Rate 16 br/min Systolic Blood Pressure 128 mm Hg Diastolic Blood Pressure 101 mm Hg H Blood pressure sites Arm, left Mean Arterial Pressure 110 mm Hg Pulse Pressure 27 mm Hg 01/07/2023 9:00 EDT Temperature 98.2 DegF Temperature Route Oral Heart Rate Monitored 81 bpm Respiratory Rate 34 br/min H Systolic Blood Pressure 146 mm Hg H Diastolic Blood Pressure 92 mm Hg H Blood pressure sites Arm, right Pulse Pressure 54 mm Hg Oxygen Saturation 98 % Mode of Delivery (Oxygen) Room air 01/07/2023 7:32 EDT Temperature 98 DegF Temperature Route Oral Pulse Rate 86 bpm Respiratory Rate 18 br/min Systolic Blood Pressure 141 mm Hg H Diastolic Blood Pressure 82 mm Hg Blood pressure sites Arm, right Mean Arterial Pressure 102 mm Hg Pulse Pressure 59 mm Hg Oxygen Saturation 100 % Mode of Delivery (Oxygen) Room air . Evaluation P alteration in cardiac I as per plan of care E pt received from [facility] as a transfer from [facility]. Pt had cardiac cath done with no intervention. pt had right radial TR band in place for procedure site which has been deflated and removed. DSD applied. pt voiding clear yellow urine, tele sinus rhythm/sinus tachycardia. VSS. tolerating diet. denies any chest pain or discomfort. call greene at side aware of use. pt safety maintained. bedside echo done. * Morenita Powers RN: PERFORM Event Display: Progress Note Hospital Authored Date: 2 rn skin assessment upon admission with intact skin * Morenita Powers RN: PERFORM Event Display: Progress Note Hospital Authored Date: CCU team asked multiple times to please see patient as she is inquiring to speak with someone and still awaiting for MD. pt made aware physician would be in to see her Patient Care team information Care Team Personnel Name: Caren Wynne Position: [facility] Outreach Member Role: Lifetime Consulting Physician Name: Not on Staff, PCP Position: [facility] Physician (General Medicine) Member Role: PCP Name: Sandra Herrera RN Position: [facility] RN Member Role: Primary Care Nurse Name: Bri Garvey Position: [facility] Outreach Member Role: Lifetime Consulting Physician Care Team Related Persons Name: LOUIS WINSTON Address: [place] [address]
--- OUTSIDE RECORDS SUMMARY | 2023-03-08 07:19 | XMS_ITS | Continuity of Care Document ---
Author Name Unknown Organization [facility] Address [address] [place] [id number]- Care Team Providers Care Mental Retardation Nurse Name Role Phone Ludwin Smith MD Primary Care Physician [phone] [place]counter [facility] [place]02[place]23 - 02/09/23 [facility] [address] [place] [id number]- Referring Physician: Ludwin Smith MD Allergies, Adverse Reactions, Alerts No Known Allergies Medications aspirin 81 mg oral delayed release tablet 81 mg, By Mouth, Daily, # 30 tablet, Refills 0, Tot. Refills 0, Maintenance, 01/08/23 11:24:00 EDT,Route to Pharmacy Electronically, [facility], Partial fill upon patient request [...] 01/08/23 11:24:00 EDT, Route to Pharmacy Electronically, [facility], Partial fill upon patient request [...] recent to oldest [Reference Range]: 1 2 Height 170 cm (02/02/23 11:34 AM) 170 cm (02/02/23 11:27 AM) Weight 89.7 kg (02/02/23 11:27 AM) Oxygen Saturation [94-100 %] 98 % (02/02/23 11:27 AM) Pulse Rate [55-90 bpm] 87 bpm (02/02/23 11:34 AM) 84 bpm (02/02/23 11:27 AM) Body Mass Index [18.5-24.99 kg/m2] 31.04 kg/m2 *>HHI* (02/02/23 11:27 AM) Blood Pressure [90-138/55-84 mm Hg] 131/ 84mm Hg (02/02/23 11:34 AM) 153/83mm Hg *H* (02/02/23 11:27 AM) Mode of Delivery (Oxygen) Room air (02/02/23 11:27 AM) Blood pressure sites Arm, right (02/02/23 11:34 AM) Arm, left (02/02/23 11:27 AM) Weight Obtained Via Bed scale (02/02/23 11:27 AM) Social History Social History Type Response Smoking Status Never smoker entered on: 08/09/14 Sex EKG study * Event Display: ECG 12-Lead Authored Date: Please click on pdf link to open report * Event Display: ECG 12-Lead Authored Date: Ventricular Rate: 81 BPM Atrial Rate: 81 BPM P-R Interval: 148 ms QRS Duration: 86 ms Q-T Interval: 396 ms QTC Calculation(Bazett): 460 ms P [place]: 57 degrees R [place]: 25 degrees T [place]: 18 degrees Normal sinus rhythm Normal ECG When compared with ECG of 07-JAN-2023 09:37, No significant change was found Confirmed by RAY HAIR MD ([id number]) on 02/02/2023 11:44:13 AM Malott: RAY HAIR MD Cardiology Outpatient Note * Stanley Gao MD: PERFORM Event Display: Cardiology Note Office Authored Date: Patient: ??CATRACHITO, DANILO ? Age:??62 Years?Sex:??Female?:??1960?? Indication for Consult NPV CP History of Present Illness/Interval History Patient is a 62-year-old woman?hospitalized??at?? [facility] from January 07 through October 23 for evaluation of chest discomfort which had begun earlier that week associated with tachycardia.?? Initially pleuritic?? but??became more constant.?? There was a question of EKG changes and she was brought to the cardiac catheterization laboratory where no significant coronary disease was found but there was said to be a consideration of spontaneous coronary artery dissection?in the distal right coronary artery. I have reviewed those films and found??no evidence of a coronary artery dissection.?? Since discharge the patient has felt well without any discomfort.?? She has she has a history of diabetes and hypertension.?? Echocardiogram in the hospital revealed normal systolic function without any wall motion abnormalities.?? Troponins did not elevate. Review of Systems Pertinent positives as per the HPI.? All other systems were reviewed and were negative Physical Exam Vitals & Measurements HR:??87??(Peripheral)?? BP:??131/84?? SpO2:??98%?? HT:??170??cm?? WT:??89.7??kg?? BMI:??31.04?? Weight lb/oz: 197 lb 12 oz Physical Exam General Appearance ? Well Developed, well nourished, no acute distress Neuro: ? Alert and Oriented x 3 ? Moves all extremities HEENT: ? Moist mucous membranes Cardiac: ? No murmurs, rubs or gallops ? RA pressure not elevated Lungs: ? Clear to Auscultation and Percussion Abdomen: ? No discomfort to palpation ? No masses, no organomegaly Extremities: ? No cyanosis, clubbing or edema Assessment/Plan Chest pain ??The??etiology of the patient's chest discomfort associated with??increased heart rate remains uncertain but it has not recurred.?? Coronary anatomy was unremarkable??with no evidence of SCAD upon??review of the films.?Patient has been reassured. I did??tell her not to take metoprolol??if her heart rate increases??as there is?generally a physiological explanation. ??I have not given her a return appointment but we would have to be happy to see her in the future if the need arises Allergies NKA Home Medications aspirin 81 mg oral delayed release tablet, 81 mg, By Mouth, Daily Freestyle Lancets Freestyle Litestrips glimepiride 2 mg oral tablet, 2 mg= 1 tablet, By Mouth, Daily hydrochlorothiazide 25 mg oral tablet, 25 mg= 1 tablet, By Mouth, Daily lisinopril 10 mg oral tablet, 10 mg= 1 tablet, By Mouth, Daily MetFORMIN (Eqv-Glucophage XR) 500 mg oral tablet, extended release, 1000 mg= 2 tablet, By Mouth, 2 times a day Metoprolol Tartrate 25 mg oral tablet, 12.5 mg= 0.5 tablet, By Mouth, 2 times a day omeprazole 20 mg oral enteric coated capsule, 20 mg= 1 capsule, By Mouth, Daily rosuvastatin 40 mg oral tablet, 40 mg= 1 tablet, By Mouth, Daily Trulicity Pen 1.5 mg/0.5 mL subcutaneous solution, 1.5 mg, Subcutaneous Injection, Every week Lab Results Cardiology Labs WBC: 10.5 k/mm3 (01/08/23) RBC: 4.8 m/mm3 (01/08/23) Hgb: 13.8 Gm/dL (01/08/23) Hct: 40.9 % (01/08/23) MCV: 85.2 femtoliters (01/08/23) MCH: 28.8 pg (01/08/23) MCHC: 33.7 g/dL (01/08/23) Platelet Count: 392 k/mm3 (01/08/23) RDW-SD: 38.8 femtoliters (01/08/23) Nucleated RBC (Automated): 0 #/100 WBC'S (01/08/23) Abs. Neut:??10.1 k/mm3??High (01/07/23) Abs. Lymph: 3 k/mm3 (01/07/23) Abs. [place]:??1.6 k/mm3??High (01/07/23) Abs. Eo: 0.2 k/mm3 (01/07/23) Abs. Baso: 0.1 k/mm3 (01/07/23) Neut %: 67 % (01/07/23) [place] %:??10.8 %??High (01/07/23) Eos %: 1.6 % (01/07/23) Baso %: 0.5 % (01/07/23) Imm Gran: 0.4 % (01/07/23) Abs. Imm Gran: 0.1 k/mm3 (01/07/23) INR: 1.1 (02/27/22) Protime (PT): 11 seconds (02/27/22) Sodium: 139 mmol/L (01/08/23) Potassium: 4.3 mmol/L (01/08/23) Chloride: 102 mmol/L (01/08/23) Bicarbonate Level: 26 mmol/L (01/08/23) Glucose Level:??127 mg/dL??High (01/08/23) Hemoglobin A1C (Monitoring):??6.7 %??High (01/07/23) BUN: 11 mg/dL (01/08/23) Creatinine-Blood: 0.7 mg/dL (01/08/23) Calcium: 9.2 mg/dL (01/08/23) Protein, Total: 6.6 Gm/dL (01/08/23) Albumin: 4.2 Gm/dL (01/08/23) Alkaline Phosphatase: 81 units/L (01/08/23) AST (SGOT): 18 units/L (01/08/23) ALT (SGPT): 18 units/L (01/08/23) Bilirubin, Total: 0.5 mg/dL (01/08/23) Nt-Probnp: 71 pg/mL (01/07/23) Cholesterol: 112 mg/dL (01/07/23) Triglycerides: 124 mg/dL (01/07/23) HDL Cholesterol: 44 mg/dL (01/07/23) LDL Cholesterol: 43 mg/dL (01/07/23) Non HDL Cholesterol: 68 mg/dL (01/07/23) TSH: 1.06 uIU/mL (01/05/23) Diagnostic Impression ECG ECG 12-Lead ?? 11:41:16 Please click on pdf link to open report ?? Signed By: Ray Hair DO ?? ECG 12-Lead ?? 11:41:16 Ventricular Rate: 81 BPM Atrial Rate: 81 BPM P-R Interval: 148 ms QRS Duration: 86 ms Q-T Interval: 396 ms QTC Calculation(Bazett): 460 ms P [place]: 57 degrees R [place]: 25 degrees T [place]: 18 degrees Normal sinus rhythm Normal ECG When compared with ECG of 07-JAN-2023 09:37, No significant change was found Confirmed by RAY HAIR MD ([id number]) on 02/02/2023 11:44:13 AM ?? Malott: RAY HAIR MD ?? Signed By: Ray Hair DO Echo Echocardiogram - Complete ?? 16:19:22 Summary 1. The ventricle is normal in [...] mild plaque in the ascending aorta. ?? Comparison No prior study available for comparison. ?? Signature ?? Signed By: Brown Cheng MD Problem List/Past Medical History Ongoing Family history of breast cancer Lobular carcinoma in situ (LCIS) of right breast, and 2012 Obese class I Procedure/Surgical History Breast lumpectomy, right: 2012 Biopsy of breast, left / benign: 2012 Biopsy of breast, right / FEA: 2012 Biopsy of breast, left / benign: 2009 Social History Alcohol Use: Never. Exercise Regular exercise: Yes. Nutrition/Health Diet: Regular. Caffeine intake amount: coffee 2 cups a day. Substance Abuse Use: Never. Tobacco Never smoker Family History Mother (Diagnosed age 30): Cancer of breast Father: Cancer of lung Brother (Diagnosed age 56): Pancreatic cancer Patient Care team information Care Team Personnel Name: Ludwin Smith MD Position: S Physician - Primary Care Member Role: PCP Address: Address: [address] [place] [address]- Name: Caren Wynne Position: [facility] Outreach Member Role: Lifetime Consulting Physician Name: Sandra Herrera RN Position: [facility] RN Member Role: Primary Care Nurse Name: Bri Garvey Position: [facility] Outreach Member Role: Lifetime Consulting Physician Care Team Related Persons Name: LOUIS WINSTON Address: home [address] [place] [id number]
--- OUTSIDE RECORDS SUMMARY | 2023-03-08 07:19 | XMS_ITS | Continuity of Care Document ---
Author Name Unknown Organization [facility] ter Address [address] [place] [id number] Care Team Providers Care Beauty Counselor Name Role Phone Manda XIAO, Mary Primary Care Physician Encounter [facility] Date(s): 05/15/21 - 02/20/[address] [address] Attending Physician: Haleigh Gamboa NP Admitting Physician: Haleigh Gamboa NP Referring Physician: Cooper NEWMAN, Haleigh Jackson Allergies, Adverse Reactions, Alerts No Known Allergies [...] Date: 08/09/14 Status: Ordered Problem List Condition Confirmation Course Effective Dates Status Health [facility] Informant Family history of breast cancer Confirmed Active Lobular carcinoma in situ (LCIS) of right breast, and JUDSON, 2012 Confirmed Active Social History Social History Type Response Smoking Status Never smoker entered on: 08/09/14 Sex Patient Care team information Care Team Personnel Name: Mary Holman MD Position: S Primary Care Physician Member Role: PCP Address: Address: [address] [place] [id number]- Care Team Related Persons Name: LOUIS WINSTON Address: home [address] [place] [address]
[2023-03-08 07:49] LABS: Hematocrit 42.3 % (37.0-47.0); Hemoglobin 14.3 g/dl (12.0-16.0)
[2023-03-08 08:10] LABS: Glucose, Whole Blood 140 mg/dL (60-115)
[2023-03-08] MEDS: Lactated Ringers 1,000 ML 100 ML IVCONT ×3 (08:26→23:09)
--- NOTE | 2023-03-08 08:53 | PHA.MEDREC ---
Pharmacy Consult ? Medication Reconciliation Pharmacy has completed the medication reconciliation. Reviewed med rec done by nursing
--- NOTE | 2023-03-08 13:24 | PM.OP ---
Brief Operative Note Date of Service: 03/08/23 Pre-op diagnosis: Right knee OA Post-op diagnosis: same Procedure: Right TKA Implants: [employer] Triathlon cruiciate retaining press fit 05/22/09 Surgeon: Asa Hoyos MD Anesthesia: GETA Was an Dental Scheduling Coordinator used for this Procedure?: Yes Dental Scheduling Coordinator: Brian Awan Estimated blood loss (mL): 25 Tourniquet time (min): 52 IV fluids (mL): 1,000 Pathology: other Condition: stable Disposition: PACU
--- NOTE | 2023-03-08 13:42 | HO.PM.IMCN ---
History of Present Illness Data of Consult Service Date: 03/08/23 Requesting physician: Brian Awan Primary Care Provider: Kamran Smith MD [facility] Reason for consult: medical management, diabetes 62-year-old female with well-controlled tny-[id number]-[id number] type 2 diabetes, hypertension, hyperlipidemia, GERD admitted to Orthopedic surgery for management osteoarthritis of the right knee s/p TKA with consult placed to hospitalist service for medical management. The patient has well-controlled diabetes with last A1c of 6.5%. She has no complaints at this time but does state that she still has no sensation in the lower extremities and has not yet urinated. Did undergo spinal block preoperatively. Vital signs are stable. Review of Systems Review of Systems: Yes all other systems are reviewed and are negative [facility] Medical History Chest pain History of COVID-19 Arthritis Diabetes GERD (gastroesophageal reflux disease) Elevated cholesterol HTN (hypertension) Surgical History Hx of cardiac catheterization Hx of cholecystectomy H/O colonoscopy Hx of arthroscopy of right knee Social History Are you a primary primary care nurse practitioner to a significant other at home: No Do you presently have visiting nurse or other home services: No Patient Tobacco Use Status: Never used Tobacco Use of substances other than those prescribed or required for medical reasons: No Have you been hit, kicked, punched, or otherwise hurt by someone within the past year? If so, by whom?: No Are you DNR?: No Advance Directives Information Provided: Yes (as above noted) Advance Directives on File: No Recently lost weight without trying: No Eating poorly because of decreased appetite: No Nutrition Risks: No Nutritional Risk Poor oral hygiene: No Meds Allergies Allergy/AdvReac Type Severity Reaction Status Date / Time No Known Allergies Allergy Verified 03/03/23 13:31 Active Medications: Current Medications Acetaminophen (Acetaminophen 325 Mg Tablet) 650 mg PO Q6H PRN PRN Reason: Pain, Mild (Pain Scale 1-3) Aspirin (Aspirin 325 Mg Tablet) 325 mg PO BID SHAKIR Celecoxib (Celecoxib 200 Mg Capsule) 200 mg PO BID SHAKIR Dextrose (Dextrose 50 % 25 Gm/50 Ml Syringe) 25 gm IVPUSH Q15M PRN; Protocol PRN Reason: per Hypoglycemia Standing Ord. Docusate Sodium (Docusate Sodium 100 Mg Capsule) 100 mg PO BID [facility] Glucose (Glucose Gel 15 Gm Gel..Gram.) 15 gm PO Q15M PRN; Protocol PRN Reason: per Hypoglycemia Standing Ord. Hydrochlorothiazide (Hydrochlorothiazide 25 Mg Tablet) 25 mg PO DAILY [facility]; Protocol Hydromorphone HCl (Hydromorphone Hcl 0.5 Mg/0.5 Ml Syringe) 0.25 mg IVPUSH Q4H PRN; Protocol PRN Reason: Pain, Severe (Pain Scale 7-10) Lactated Ringer's (Lr) 1,000 mls @ 100 mls/hr IVCONT .Q10H [facility] Stop: 03/09/23 11:29 Cefazolin Sodium/Dextrose (Ancef) 2 gm in 50 mls @ 100 mls/hr IV POSTOP ONE Stop: 03/08/23 16:29 Insulin Human Lispro (Insulin Lispro 100 Unit/Ml 3 Ml Vial) 0 unit SUBCUT QIDACHS [facility]; Protocol Omeprazole (Omeprazole 20 Mg Capsule.Dr) 20 mg PO Q48H [facility] Ondansetron HCl (Ondansetron Hcl 4 Mg/2 Ml Vial) 4 mg IVPUSH Q8H PRN PRN Reason: Nausea and Vomiting Oxycodone HCl (Oxycodone Hcl Immed Release 5 Mg Tablet) 5 mg PO Q4H PRN PRN Reason: Pain, Moderate(Pain Scale 4-6) Oxycodone HCl (Oxycodone Hcl Er 10 Mg Tab.Er.12h) 10 mg PO BID [facility] Sodium Chloride (0.9 % Sodium Chloride Flush 3 Ml Syringe) 3 ml IVFLUSH QSHIFT [facility] Home Medications Medication Instructions Recorded Confirmed Last Taken Type hydrochlorothiazide 25 mg tablet 25 mg PO QAM 06/11/21 03/03/23 Unknown History lisinopril 5 mg tablet 5 mg PO QAM 06/11/21 03/03/23 Unknown History omeprazole 20 mg capsule,delayed 20 mg PO Q2D 06/11/21 03/08/23 Unknown History release rosuvastatin 40 mg tablet 40 mg PO Q2D 06/11/21 03/08/23 Unknown History glimepiride 2 mg tablet 2 mg PO QAM 03/01/22 03/03/23 Unknown History metformin 500 mg tablet,extended 2 tab PO BID 03/01/22 03/03/23 Unknown History release 24 hr dulaglutide 1.5 mg/0.5 mL 1.5 mg subcut QWEEK 03/03/23 03/08/23 Unknown History subcutaneous pen injector (Trulicity) Physical Exam Vital Signs and Narrative: Vital Signs: Last Vital Signs Temp 96.9 F 03/08/23 13:37 Pulse 72 03/08/23 13:37 Resp 18 03/08/23 13:37 BP 139/68 03/08/23 13:37 Pulse Ox 98 03/08/23 13:37 O2 Del Method Room Air 03/08/23 13:37 BMI result Body Mass Index 31.0 Constitutional - Awake and Alert, No apparent distress Eyes - PERRLA, EOMI Cardiovascular - S1S2, RRR, No edema Respiratory - Normal lung expansion, Normal respiratory effort, No respiratory distress, CTA bilaterally Gastrointestinal - NT / ND; +BS; No rebound or guarding Extremities - no calf tenderness bilaterally, no swelling Skin - Warm/Dry Neurological - Alert & oriented x3, decreased sensation and strength RLE Results Labs 03/08/23 07:45 Labs: Laboratory Results - last 24 hr 03/08/23 08:06 POC Glucose 140 H Imaging Radiologist's Impressions: Impressions Knee X-Ray 03/08/23 12:33 IMPRESSION: Appropriate alignment of the right total knee arthroplasty. Assessment and Plan (1) Arthritis of right knee: Status: Acute Plan 62-year-old female with well-controlled nqh-bndexdi-ltedeygrc type 2 diabetes, hypertension, hyperlipidemia, GERD admitted to Orthopedic surgery for management osteoarthritis of the right knee s/p TKA with consult placed to hospitalist service for medical management. #OA right knee s/p TKA POD 0 -plan per ortho surgery # ycu-koedyhb-tvkdakeew type 2 diabetes -last hemoglobin A1c 6.5%, well controlled -hold Trulicity, oral antihyperglycemics while admitted, resume on discharge -POC glucose -diabetic diet -Humalog on sliding scale # hypertension -blood pressure reasonably controlled -resume hydrochlorothiazide a.m., resume lisinopril on discharge # hyperlipidemia -continue statin # GERD -continue PPI DVT prophylaxis-per Orthopedic surgery Thank you for allowing me to participate in this consult. Signing off at this time. Please do not hesitate to call for further questions.
[2023-03-08 13:45] LABS: Glucose, Whole Blood 114 mg/dL (60-115)
[2023-03-08] MEDS: hydroCHLOROthiazide 25 MG TABLET PO (13:52)
[2023-03-08] MEDS: HYDROmorphone HCl 0.5 MG/0.5 ML SYRINGE 0.25 MG IVPUSH (15:10)
[2023-03-08] MEDS: ceFAZolin Sodium/Dextrose,Iso 2 GM/50 ML PIGGYBACK IV (15:11)
[2023-03-08] MEDS: oxyCODONE HCl Immed Release 5 MG TABLET PO ×2 (16:14→23:07)
[2023-03-08] MEDS: Acetaminophen 325 MG TABLET 650 MG PO ×2 (16:15→23:07)
[2023-03-08 16:20] LABS: Glucose, Whole Blood 175 mg/dL (60-115)
[2023-03-08] MEDS: Insulin Lispro 100 UNIT/ML 3 ML VIAL SUBCUT ×2 (16:59→20:42)
[2023-03-08 20:12] LABS: Glucose, Whole Blood 303 mg/dL (60-115)
[2023-03-08] MEDS: Docusate Sodium 100 MG CAPSULE PO (20:39)
[2023-03-08] MEDS: oxyCODONE HCl ER 10 MG TAB.ER.12H PO (20:39)
[2023-03-08] MEDS: Celecoxib 200 MG CAPSULE PO (20:39)
[2023-03-09 03:05] VITALS: BP 140/66; PULSE 75; RESP 18; TEMP 36.1; O2SAT 94
[2023-03-09] MEDS: Omeprazole 20 MG CAPSULE.DR PO (05:50)
[2023-03-09] MEDS: Acetaminophen 325 MG TABLET 650 MG PO ×2 (05:50→18:17)
[2023-03-09] MEDS: oxyCODONE HCl Immed Release 5 MG TABLET PO ×5 (05:51→22:24)
[2023-03-09 06:34] LABS: Basophils Percent Auto 0.3 % (0-2); Eosinophils Absolute Auto 0.1 X10*3/uL (0.0-0.4); Eosinophils Percent Auto 0.9 % (0-4); Hemoglobin 12.4 g/dl (12.0-16.0); Imm Gran Abs Auto 0.06 X10*3/uL (0.00-0.03); Imm Gran Pct Auto 0.4 % (0.0-0.4); Lymphocytes Absolute Auto 2.7 X10*3/uL (1.2-4.9); Lymphocytes Percent Auto 18.8 % (20-40); MANUAL DIFF FLAG SCAN; Mean Corpuscular HGB Conc 34.4 g/dl (31.0-35.0); Mean Corpuscular Volume 84.3 fL (80.0-98.0); Mean Platelet Volume 8.5 fL (9.4-12.3); Monocytes Absolute Auto 1.8 X10*3/uL (0.1-1.2); Monocytes Percent Auto 12.3 % (2-11); Neutrophils Absolute Auto 9.8 x10*3/uL (2.0-8.3); Neutrophils Percent Auto 67.3 % (45-73); Platelet Count 352 X10*3/uL (160-400); Red Blood Count 4.27 X10*6/uL (4.20-5.50); Red Cell Distribution Width 12.4 % (11.0-16.0); SCAN SMEAR FLAG 1; White Blood Count 14.6 X10*3/uL (4.8-10.8)
[2023-03-09 06:51] LABS: Anion Gap 13 (12-20); Blood Urea Nitrogen 13 mg/dL (9-16); Calcium 8.5 mg/dL (8.4-10.2); Carbon Dioxide 26 mmol/L (22-29); Chloride 95 mmol/L (96-108); Creatinine Clr Calc Pharmacy 96.1; Estimated Glomerular Filt Rate > 60; Glucose Fasting 154 mg/dL (60-99); Potassium 3.4 mmol/L (3.3-5.1); Sodium 131 mmol/L (135-145)
[2023-03-09 07:02] VITALS: BP 136/66; PULSE 76; RESP 16; TEMP 36.1; O2SAT 95
[2023-03-09 07:46] LABS: Glucose, Whole Blood 150 mg/dL (60-115)
--- NOTE | 2023-03-09 08:07 | PM.PNORT ---
Subjective Subjective Date of Service: 03/09/23 Interval history: POD1 s/p RTKA Patient is resting in bed comfortably No overnight events Pain is managed No additional complaints Physical Exam Vital Signs: Vital Signs: Last Vital Signs Temp 96.9 F 03/09/23 07:02 Pulse 76 03/09/23 07:02 Resp 16 03/09/23 07:02 BP 136/66 03/09/23 07:02 Pulse Ox 95 03/09/23 07:02 O2 Del Method Room Air 03/09/23 07:02 BMI result Body Mass Index 31.0 Const: General: cooperative, healthy appearing and no acute distress Resp: Effort & Inspection: normal respiratory effort and able to speak in complete sentences Cardio: Rate: regular rate Peripheral pulses: Peripheral pulses 2+ throughout GI: Palpation (GI): Soft to palpation Skin: Lesions: no lesions Rashes: no rashes Extrem: Other: Right knee dressing is c/d/i. Able to dorsi/plantar flex. Calf is supple and nontender. Sensation intact. Pedal pulse intact. Procedures Date of Service Date of Service: 03/09/23 Progress Note: A&P Assessment and plan (1) Status post total knee replacement, right: Status: Acute (2) Diabetes: Status: Acute Plan Continue pain mgmnt Begin ASA for dvt ppx begin PT for RTKA Dispo planning-Pending PT eval, pain mgmnt Patient will need ongoing hospitalization for management of pain, physical therapy, and Diabetes Time Spent With Patient Time: Total time managing care of this patient today ____ minutes. Quality Stroke Does the patient have a stroke diagnosis?: No VTE Prior VTE?: No VTE Risk Level:: Medical - moderate - high VTE Device Contraindication: N/A - Device Ordered VTE Drug Contraindication: N/A - Med Ordered
[2023-03-09] MEDS: hydroCHLOROthiazide 25 MG TABLET PO (08:23)
[2023-03-09] MEDS: Docusate Sodium 100 MG CAPSULE PO ×2 (08:24→19:20)
[2023-03-09] MEDS: Insulin Lispro 100 UNIT/ML 3 ML VIAL SUBCUT ×4 (08:24→21:10)
[2023-03-09] MEDS: Celecoxib 200 MG CAPSULE PO ×2 (08:24→19:20)
[2023-03-09] MEDS: oxyCODONE HCl ER 10 MG TAB.ER.12H PO ×2 (08:24→19:20)
[2023-03-09] MEDS: 0.9 % Sodium Chloride Flush 3 ML SYRINGE IVFLUSH (08:24)
[2023-03-09 10:00] LABS: SLIDE REVIEW VERIFIED
[2023-03-09 10:14] VITALS: BP 136/66; PULSE 76; O2SAT 95
[2023-03-09] MEDS: Aspirin 325 MG TABLET PO ×2 (10:25→19:20)
--- NOTE | 2023-03-09 10:37 | HO.POSTANES ---
Post Anesthesia Evaluation Post Anesthesia Evaluation Date of Service: 03/09/23 Vital Signs: Vital Signs Temp Pulse Resp BP Pulse Ox O2 Del Method 03/09/23 10:14 76 136/66 95 03/09/23 07:02 96.9 F 76 16 136/66 95 Room Air 03/09/23 03:05 96.9 F 75 18 140/66 H 94 Room Air Anesthesia: Spinal and Nerve Block Mental Status: Awake Pain Control: Satisfactory Nausea/Vomiting: None Hydration: Adequate Anesthesia-Related Issues: No Anes. Related Issues
[2023-03-09 11:18] LABS: Glucose, Whole Blood 255 mg/dL (60-115)
--- NOTE | 2023-03-09 11:46 | W.PM.OPN ---
Operative Note Operative Note Date of Service: 03/08/23 Narrative: Date of Service: 03/08/23 Pre-op diagnosis: Right knee OA Post-op diagnosis: same Procedure: Right TKA Implants: [place] Triathlon cruiciate retaining press fit 05/22/09 Surgeon: Asa Hoyos MD Anesthesia: GETA Was an Candy Forming Machine Operator used for this Procedure?: Yes Candy Forming Machine Operator: Brian Awan Estimated blood loss (mL): 25 Tourniquet time (min): 52 IV fluids (mL): 1,000 Pathology: other Condition: stable Disposition: PACU Procedure in detail: The patient was brought to the operating room and prepped and draped in standard sterile fashion. A time-out was called to identify proper site proper procedure proper surgeon and IV antibiotics were administered. 1 g of IV tranexamic acid was administered. I began by making a midline incision to the retinaculum and performed a medial parapatellar arthrotomy. The patella was translated laterally and the knee was flexed up. There was medial compartment eburnation. I performed a small medial peel and resected the infrapatellar fat pad. Jose Alejandro's line was then used to drill my intramedullary femoral guide and my distal femur cut of 12 mm ( 10 deg flexion contracture) was made in 5 degrees of valgus while protecting the soft tissues. I then measured a # 3femur and placed my cutting guide and made my anterior posterior and chamfer cuts protecting the soft tissues at all times. Once I was satisfied with my cuts I turned my attention to the tibia. I removed the meniscus medially and laterally and , using an external cutting guide, in line with the tibial crest and the third ray, I made my distal tibial cut in 3 deg slope of while protecting the PCL the posterior soft tissues at all times. An extension block was used to confirm appropriate amount of bony resection. I then sized a #4 tibia and once I was satisfied that there was complete tibial coverage I placed my trial and with the trial femur in place took the knee through range of motion. I was satisfied with the extension and flexion as well as the stability and balance at 0, 30 and 90 degrees. I then turned my attention to the patella where I removed 1 cm from the undersurface of the patella and then trialed a 32a patellar button. Again the knee was taken through range of motion I was satisfied with the tracking. I then returned to the femur and drilled my femoral lug holes and prepared the tibia. A femoral bone plug was placed and the knee was irrigated copiously. I then press fit the patella, tibia and femur in standard fashion. I trialed different inserts until I selected a #10 insert. The final insert was placed and local TXA administered. A Werewolf cautery wand was used to maintain hemostasis over the capsule and meniscal beds, the gutters and peripatellar soft tissues. The knee was then closed with a running Quill suture, a 3 0 Vicryl and cherie on the skin. Patient was then placed in sterile dressing and brought to recovery room in stable condition there were no known complications.
--- NOTE | 2023-03-09 13:22 | MHC.CM.PN ---
Female 62 S/P RTKA She lives by herself. She is independent with functional mobility at baseline. A copy of her HCP has been scanned into her EMR. The patient is insured by [facility]. [facility] was her preference for Home care. She was informed that they do not have a contract with [facility]. A referral was sent to a contracted provider, [facility]. They have accepted the case. DP Home with [facility]. Patient will arrange for transport home.
[2023-03-09] MEDS: Lactated Ringers 1,000 ML 100 ML IVCONT (14:50)
[2023-03-09 15:21] VITALS: BP 136/66; PULSE 76
[2023-03-09 15:24] VITALS: BP 123/58; PULSE 72; RESP 18; TEMP 36.4; O2SAT 91
[2023-03-09 16:19] LABS: Glucose, Whole Blood 266 mg/dL (60-115)
[2023-03-09 19:00] VITALS: BP 144/82; PULSE 81; RESP 18; TEMP 37.1; O2SAT 97
[2023-03-09] MEDS: HYDROmorphone HCl 0.5 MG/0.5 ML SYRINGE 0.25 MG IVPUSH (19:20)
[2023-03-09 20:00] LABS: Glucose, Whole Blood 256 mg/dL (60-115)
[2023-03-10] MEDS: HYDROmorphone HCl 0.5 MG/0.5 ML SYRINGE 0.25 MG IVPUSH (00:14)
[2023-03-10] MEDS: 0.9 % Sodium Chloride Flush 3 ML SYRINGE IVFLUSH ×2 (00:15→08:28)
[2023-03-10 03:58] VITALS: BP 142/74; PULSE 84; RESP 18; TEMP 36.3; O2SAT 98
[2023-03-10] MEDS: Acetaminophen 325 MG TABLET 650 MG PO (06:17)
--- NOTE | 2023-03-10 06:22 | PM.DS ---
DS: Providers Provider Date of Service: 03/10/23 Date of admission: 03/08/23 07:13 Primary care physician: Kamran Smith MD Consults: 03/08/23 13:25 Consult to Hospitalist Routine Comment: Consulting Provider: Hospitalist Reason For Exam: diabetes management DS: Diagnosis Discharge Diagnosis (1) Status post total knee replacement, right: Status: Acute (2) Diabetes: Status: Acute DS: Summary Hospital Course Hospital Course: The patient underwent a successful Right total knee arthroplasty on 03/08/23, was transferred to PACU and then to the floor to recover. During their stay, their vitals were stable, afebrile at 97.4. Labs were unremarkable, H/H 12.2/35.0 . POD 1 she was started on ASA 325mg tabs po twice a day for DVT ppx, they also received Physical Therapy services twice a day. Physical therapy should include gait training, ROM to tolerance and quad strength. She is WBAT. Prior to discharge, his dressing was changed, incision clean dry and intact, new Aquacel dressing applied. The Aquacel dressing should remain intact and dry at all times. Any concerns with the dressing, please contact orthopedic office. No showering. The plan is to be discharged home with [facility] services Post op appt: 03/24/23 1:00 [facility] Orthopedic Surgeons Traci Guevara PA-C Time Attestation Discharge coordination time: Less than 30 minutes Quality: Safe Use of Opioids Does Pt have an Active Cancer Diagnosis on the Problem List?: No Quality: Stroke Does the patient have a stroke diagnosis?: No Physical Exam Vital Signs: Vital Signs: Last Vital Signs Temp 97.4 F 03/10/23 03:58 Pulse 84 03/10/23 03:58 Resp 18 03/10/23 03:58 BP 142/74 H 03/10/23 03:58 Pulse Ox 98 03/10/23 03:58 O2 Del Method Room Air 03/10/23 03:58 BMI result Body Mass Index 31.0 Const: General: cooperative, healthy appearing and no acute distress Resp: Effort & Inspection: normal respiratory effort and able to speak in complete sentences Cardio: Rate: regular rate Peripheral pulses: Peripheral pulses 2+ throughout GI: Palpation (GI): Soft to palpation Skin: Lesions: no lesions Rashes: no rashes Extrem: Other: Right knee dressing is c/d/i. Able to dorsi/plantar flex. Calf is supple and nontender. Sensation intact. Pedal pulse intact. DS: Data Data Completed and Pending Pending studies at discharge: Pending at discharge 03/08/23 10:46 Surgical [PTH] Routine Labs on day of discharge: Laboratory Results - last 24 hr 03/09/23 03/09/23 03/09/23 06:00 07:06 11:08 WBC 14.6 H RBC 4.27 Hgb 12.4 Hct 36.0 L MCV 84.3 MCH 29.0 MCHC 34.4 RDW 12.4 Plt Count 352 D MPV 8.5 L Immature Gran % (Auto) 0.4 Neut % (Auto) 67.3 Lymph % (Auto) 18.8 L [place] % (Auto) 12.3 H Eos % (Auto) 0.9 Baso % (Auto) 0.3 Lymph # (Auto) 2.7 [place] # (Auto) 1.8 H Eos # (Auto) 0.1 Baso # (Auto) 0.0 Abs Immat Gran (auto) 0.06 H Absolute Neuts (auto) 9.8 H Absolute Nucleated RBC 0.000 Nucleated RBC % (auto) 0.0 Smear Tech's Comments VERIFIED Sodium 131 L Potassium 3.4 Chloride 95 L Carbon Dioxide 26 Anion Gap 13 BUN 13 Creatinine 0.69 Estim Creat Clear Calc 96.1 Estimated GFR > 60 POC Glucose 150 H 255 H Fasting Glucose 154 H Calcium 8.5 03/09/23 03/09/23 16:02 19:42 WBC RBC Hgb Hct MCV MCH MCHC RDW Plt Count MPV Immature Gran % (Auto) Neut % (Auto) Lymph % (Auto) [place] % (Auto) Eos % (Auto) Baso % (Auto) Lymph # (Auto) [place] # (Auto) Eos # (Auto) Baso # (Auto) Abs Immat Gran (auto) Absolute Neuts (auto) Absolute Nucleated RBC Nucleated RBC % (auto) Smear Tech's Comments Sodium Potassium Chloride Carbon Dioxide Anion Gap BUN Creatinine Estim Creat Clear Calc Estimated GFR POC Glucose 266 H 256 H Fasting Glucose Calcium Discharge Plan Discharge Anticipated Discharge Date/Time: 03/10/23 06:20 Patient Disposition: Home Health Service Discharge Diagnosis: RT TKA Referrals: Traci Guevara PA-C [Physician [facility]] - 2 Weeks (03/24/23 1:00 [facility] Orthopedic Surgeons Traci Guevara PA-C) Discharge Medications: New docusate sodium 100 mg Capsule 100 mg PO BID 14 Days Qty: 28 0RF celecoxib 200 mg Capsule 200 mg PO BID 30 Days Qty: 60 0RF aspirin 325 mg Tablet 325 mg PO BID 42 Days Qty: 84 0RF oxycodone 5 mg Tablet 5 mg PO Q4H PRN (Reason: Pain, Moderate(Pain Scale 4-6)) 7 Days Qty: 42 0RF Rx Instructions: Partial Fill upon patient request. acetaminophen 325 mg Tablet 650 mg PO Q6H PRN (Reason: Pain, Mild (Pain Scale 1-3)) 30 Days Qty: 240 0RF [facility] Instructions .MEDSUPPLY Qty: 1 0RF Rx Instructions: Folding Front wheeled walker glimepiride 2 mg Tablet 2 mg PO QAM metformin 500 mg tablet extended release 24 hr 2 tab PO BID Trulicity 1.5 mg/0.5 mL pen injector 1.5 mg subcut QWEEK Rx Instructions: takes on Sundays omeprazole 20 mg capsule,delayed release(DR/EC) 20 mg PO Q2D lisinopril 5 mg tablet 5 mg PO QAM hydrochlorothiazide 25 mg tablet 25 mg PO QAM rosuvastatin 40 mg tablet 40 mg PO Q2D Discharge Orders: Discharge Order (Routine); Ordered 03/10/23 Ordered By: Brian Awan Diet: Regular diet Activity on Discharge: Use cane or walker Stand Alone Forms: Patient Portal Discharge page Care Plan Goals: Restore function of joint Health Concerns: none Plan of Treatment: Physical Therapy for Total knee arthroplasty: WBAT, gait training, ROM 0-12, quad strength Limit stair climbing No showering, no tub bath-keep dressing clean, dry and intact No driving x6 weeks Continue Aspirin twice a day x 6 weeks Follow up with [facility] Orthopedics in 2 weeks: 03/24/2412:00[facility] Orthopedic SurgeonsTraci Guevara PA-C Assessment: Physical Therapy Pain management DVT prophylaxis
[2023-03-10 07:21] LABS: Basophils Absolute Auto 0.1 X10*3/uL (0.0-0.2); Basophils Percent Auto 0.4 % (0-2); Eosinophils Absolute Auto 0.2 X10*3/uL (0.0-0.4); Eosinophils Percent Auto 1.2 % (0-4); Hemoglobin 12.2 g/dl (12.0-16.0); Imm Gran Abs Auto 0.08 X10*3/uL (0.00-0.03); Imm Gran Pct Auto 0.6 % (0.0-0.4); Lymphocytes Absolute Auto 1.4 X10*3/uL (1.2-4.9); Lymphocytes Percent Auto 9.7 % (20-40); MANUAL DIFF FLAG SCAN; Mean Corpuscular HGB Conc 34.9 g/dl (31.0-35.0); Mean Corpuscular Hemoglobin 28.9 pg (27.0-33.0); Mean Corpuscular Volume 82.9 fL (80.0-98.0); Mean Platelet Volume 8.7 fL (9.4-12.3); Monocytes Absolute Auto 1.5 X10*3/uL (0.1-1.2); Monocytes Percent Auto 10.7 % (2-11); Neutrophils Absolute Auto 11.1 x10*3/uL (2.0-8.3); Neutrophils Percent Auto 77.4 % (45-73); Platelet Count 335 X10*3/uL (160-400); Red Blood Count 4.22 X10*6/uL (4.20-5.50); Red Cell Distribution Width 12.4 % (11.0-16.0); SCAN SMEAR FLAG 1; White Blood Count 14.3 X10*3/uL (4.8-10.8)
[2023-03-10 07:30] LABS: Anion Gap 13 (12-20); Blood Urea Nitrogen 8 mg/dL (9-16); Calcium 8.6 mg/dL (8.4-10.2); Carbon Dioxide 24 mmol/L (22-29); Chloride 94 mmol/L (96-108); Creatinine Clr Calc Pharmacy 96.1; Estimated Glomerular Filt Rate > 60; Glucose Fasting 185 mg/dL (60-99); Potassium 3.6 mmol/L (3.3-5.1); Sodium 127 mmol/L (135-145)
[2023-03-10 07:35] LABS: Glucose, Whole Blood 174 mg/dL (60-115)
[2023-03-10 07:40] VITALS: BP 138/72; PULSE 90; RESP 18; TEMP 37.3; O2SAT 90
[2023-03-10 07:48] LABS: SLIDE REVIEW VERIFIED
--- NOTE | 2023-03-10 08:23 | W.MHC.F2F ---
Service Date Service Date: 03/10/23 Encounter Date of encounter: 03/10/23 Reasons for Services Signs and symptoms assessed: s/p RTKA. Pt. is considered homebound due to recent surgery. Unable to drive, poor balance, poor gait mechanics. Reason for physical therapy: home safety and mobility, therapeutic exercises, restore joint function, gait/transfer training, assess need for DME and ADL training Homebound: Leaving the home is medically contraindicated at this time without the asist of a device and/or another person due th the listed conditions above and below. Reason homebound: unsteady gait / fall risk, leg weakness, pain with ambulation, pain with transfers, poor balance / fall risk and unable to drive Certification: Based on the above findings, I certify that this patient is confined to the home and needs intermittent [facility] care, physical therapy and/or speech therapy, or continues to need occupational therapy. The patient is under my care, and I have initiated the establishment of the plan of care. The patient will be followed by a physician who will periodically review the plan of care. Time Spent With Patient Time: Total time managing care of this patient today ____ minutes.
[2023-03-10] MEDS: Insulin Lispro 100 UNIT/ML 3 ML VIAL SUBCUT (08:26)
[2023-03-10] MEDS: Celecoxib 200 MG CAPSULE PO (08:27)
[2023-03-10] MEDS: Aspirin 325 MG TABLET PO (08:27)
[2023-03-10] MEDS: oxyCODONE HCl ER 10 MG TAB.ER.12H PO (08:27)
[2023-03-10] MEDS: Docusate Sodium 100 MG CAPSULE PO (08:27)
[2023-03-10] MEDS: hydroCHLOROthiazide 25 MG TABLET PO (08:28)
--- NOTE | 2023-03-10 09:37 | MHC.CM.PN ---
Patient is discharged to home with [facility]. All discharge information has been sent to the agency. The patient has arranged for transportation home.
[2023-03-10 10:05] VITALS: BP 138/72; PULSE 90; O2SAT 90
== END 2023-03-10 11:14 | disposition home health service (06) | DRG 326 ==
LOC: HO.SSSA 07:17 → HO.S3 12:50
PROVIDERS: Orthopaedic Surgery; Admitting Provider Physician Assistant; PCP Hospitalist; Visit Provider Physician Assistant
PROC: 0SRC0JA Replacement of Right Knee Joint with Synthetic Substitute, Uncemented, Open Approach (ICD-10-PCS; CPT 27447; principal; 2023-03-08 09:40)
DX: M17.11 Unilateral primary osteoarthritis, right knee (principal); E78.5 Hyperlipidemia, unspecified; I10 Essential (primary) hypertension; K21.9 Gastro-esophageal reflux disease without esophagitis; G89.18 Other acute postprocedural pain; Z79.84 Long term (current) use of oral hypoglycemic drugs; Z79.85 Long-term (current) use of injectable non-insulin antidiabetic drugs; Z79.899 Other long term (current) drug therapy
CPT/HCPCS: 27447; 36415; 73560; 80048; 82947; 85014; 85018; 85025; 86850; 86900; 86901; 87640; 87641; 88305; 88311; 97116; 97161; 99024; C1776; J0665; J0690; J1170; J2250; J2704; J2795; J7120

== ENCOUNTER → 2023-03-08 07:13 | Outpatient (BNV) | payer OTHER, SELFPAY | PROVIDERS: Admitting Provider Physician Assistant; PCP Hospitalist; Visit Provider Orthopaedic Surgery | DX: M17.11 Unilateral primary osteoarthritis, right knee (principal) | CPT/HCPCS: 27447; 99024 ==

== ENCOUNTER → 2023-03-08 07:13 | Outpatient (BNV) | payer OTHER, SELFPAY | PROVIDERS: Admitting Provider Physician Assistant; PCP Hospitalist; Visit Provider Physician Assistant | DX: M17.11 Unilateral primary osteoarthritis, right knee (principal) | CPT/HCPCS: 99222 ==

== ENCOUNTER 2023-03-24 12:51 | Outpatient (AMB) | payer OTHER, SELFPAY ==
--- NOTE | 2023-03-24 12:54 | MHC.OFFVIS ---
Intake Intake Visit Reasons: PO- RT TKA 03/08/23 NE Intake Note: Barbara is a 62 year old female who presents today for a post op appointment s/p right TKA 03/08/23 NE. Allergies No Known Allergies Allergy (Verified 03/24/23 13:00) HPI PO- RT TKA 03/08/23 NE HPI Details 62-year-old female who presents in the office today 2 weeks status post right total knee arthroplasty, which was performed on 03/08/[address] Hoyos. [facility] Medical History Chest pain History of COVID-19 Arthritis Diabetes GERD (gastroesophageal reflux disease) Elevated cholesterol HTN (hypertension) Surgical History Hx of cardiac catheterization Hx of cholecystectomy H/O colonoscopy Hx of arthroscopy of right knee Social History Household Members: None Housing: House Are you a primary career development facilitator to a significant other at home: No Do you presently have visiting nurse or other home services: No Patient Tobacco Use Status: Never used Tobacco service: No Review of Systems Const All systems reviewed & are unremarkable except as noted in HPI and below Physical Exam Const General: cooperative, healthy appearing and no acute distress Resp Effort & Inspection: normal respiratory effort and able to speak in complete sentences Cardio Rate: regular rate Peripheral pulses: Peripheral pulses 2+ throughout GI Palpation (GI): Soft to palpation Skin Lesions: no lesions Rashes: no rashes Extrem Other: Right knee: Incision site is clean, dry, and intact. Darius intact. No surrounding erythema or drainage. No signs of infection. Active ROM is 10-90 degrees. Passive ROM is 0-90 degrees. NVI. Assessment & Plan Assessment & Plan (1) Status post total knee replacement, right: Comment: 03/08/2023 Dr. Asa Hoyos Code(s): Z96.651 - Presence of right artificial knee joint Plan Ms. West is a 62-year-old female who presents in the office today 2 weeks status post right total knee arthroplasty, which was performed on 03/08/[address] Hoyos was available to see the patient with me while in the office today and a collaborative treatment plan was made. Darius were removed and steri-stripes were applied. She will transition to out patient physical therapy at this time. She was educated he is unable to drive for 6 weeks. I have also sent a refill for her Oxycodone 5 mg PO Q4H PRN. Follow up will be in [address] Hoyos, or sooner if needed. Orders: Orders PT Evaluation and Treatment Today Z96.651 - Presence of right artificial knee joint Medications: Refilled oxycodone Partial Fill upon patient request. 5 mg PO Q4H PRN 42 tabs 0RF Pain, Moderate(Pain Scale 4-6) 7 days Patient Instructions: Scribed for Traci Guevara PA-C by Myra Hunter medical chemist, on 03/24/2023 at 12:52 pm, EST. Coding Level of Care Code Global (37194) Diagnoses Status post total knee replacement, right Z96.651
== END 2023-03-24 14:22 | disposition home or self-care (01) ==
PROVIDERS: PCP Hospitalist; Visit Provider Physician Assistant
DX: Z96.651 Presence of right artificial knee joint (principal)
CPT/HCPCS: 99024

== ENCOUNTER → 2023-03-24 12:51 | Outpatient (BNVA) | payer OTHER, SELFPAY | PROVIDERS: PCP Hospitalist; Visit Provider Physician Assistant ==

== ENCOUNTER 2023-04-18 12:06 | Outpatient (AMB) | payer OTHER, SELFPAY ==
--- NOTE | 2023-04-18 12:14 | MHC.OFFVIS ---
Intake Intake Visit Reasons: PO- RT TKA 03/08/23 NE Intake Note: Barbara is a 62 year old female who presents today for a post op appointment s/p right TKA 03/08/23 NE. At her last appointment it was discussed that she was transitioning to outpatient therapy. States she is doing well however states she cont's to have daily pain. Allergies No Known Allergies Allergy (Verified 04/18/23 12:17) HPI PO- RT TKA 03/08/23 NE HPI Details Barbara is a 62 year old woman who presents ~5 weeks S/P right TKA. She says she is doing well but continues to have pain. She has transitioned to outpatient PT and performs at-home exercises. [facility] Medical History Chest pain History of COVID-19 Arthritis Diabetes GERD (gastroesophageal reflux disease) Elevated cholesterol HTN (hypertension) Surgical History Hx of cardiac catheterization Hx of cholecystectomy H/O colonoscopy Hx of arthroscopy of right knee Social History Household Members: None Housing: House Are you a primary health care marketing manager to a significant other at home: No Do you presently have visiting nurse or other home services: No Patient Tobacco Use Status: Never used Tobacco service: No Review of Systems Const All systems reviewed & are unremarkable except as noted in HPI and below Physical Exam Const General: no acute distress, alert and awake Orientation/consciousness: patient oriented x3 HEENT Head: Yes normocephalic and Yes atraumatic Eyes EOM: EOMs intact bilaterally Resp Effort & Inspection: normal respiratory effort and able to speak in complete sentences Cardio Jugular venous distension: no JVD Skin General skin exam: turgor normal Rashes: no rashes Neuro General: patient oriented x3 Extrem Other: 5-95 mild effusion inc c/d/i Psych Appearance: grossly normal Affect: normal affect Attitude: cooperative Assessment & Plan Assessment & Plan (1) Status post total knee replacement, right: Comment: 03/08/2023 Dr. Asa Hoyos Code(s): Z96.651 - Presence of right artificial knee joint Plan: Doing well COntinue PT Ice compression Plan Prepared for Asa Hoyos MD by Anthony Mahan, certified medical coder, on 04/18/23 at 12:17 PM, EST. Coding Level of Care Code Global (01665) Diagnoses Status post total knee replacement, right Z96.651
== END 2023-04-18 12:41 | disposition home or self-care (01) ==
PROVIDERS: PCP Hospitalist; Visit Provider Orthopaedic Surgery
DX: Z96.651 Presence of right artificial knee joint (principal)
CPT/HCPCS: 99024

== ENCOUNTER → 2023-04-18 12:06 | Outpatient (BNVA) | payer OTHER, SELFPAY | PROVIDERS: PCP Hospitalist; Visit Provider Orthopaedic Surgery ==

== ENCOUNTER 2023-06-06 07:34 | Outpatient (REF) | payer OTHER, SELFPAY ==
--- NOTE | ~2023-06-06 | XR_ITS ---
EXAMINATION: XR KNEE, RIGHT XR KNEE AP STANDING CLINICAL INFORMATION: Pain. COMPARISON: Prior radiographs, most recently 03/08/2023. TECHNIQUE: Lateral and axial views of the right knee were obtained. AP bilateral standing view of the knees was obtained. FINDINGS: Prosthetic components of the right total knee arthroplasty are appropriately aligned without periprosthetic fracture or abnormal lucency. No component migration. No joint effusion. The lateral medial joint space compartments of the left knee are well-maintained. There is trace peripheral osteophyte formation of the lateral joint space compartment. XR/XR knee RT 2V IMPRESSION: 1. Appropriate alignment of the total knee arthroplasty without evidence of complications. 2. There is minimal osteoarthritic change of the lateral joint space compartment of the left knee.
--- NOTE | ~2023-06-06 | XR_ITS ---
EXAMINATION: XR KNEE, RIGHT XR KNEE AP STANDING CLINICAL INFORMATION: Pain. COMPARISON: Prior radiographs, most recently 03/08/2023. TECHNIQUE: Lateral and axial views of the right knee were obtained. AP bilateral standing view of the knees was obtained. FINDINGS: Prosthetic components of the right total knee arthroplasty are appropriately aligned without periprosthetic fracture or abnormal lucency. No component migration. No joint effusion. The lateral medial joint space compartments of the left knee are well-maintained. There is trace peripheral osteophyte formation of the lateral joint space compartment. XR/XR knee standing BI IMPRESSION: 1. Appropriate alignment of the total knee arthroplasty without evidence of complications. 2. There is minimal osteoarthritic change of the lateral joint space compartment of the left knee.
== END 2023-06-06 07:35 | disposition home or self-care (01) ==
LOC: HO.HOSX 07:34
PROVIDERS: Visit Provider Orthopaedic Surgery
DX: Z47.1 Aftercare following joint replacement surgery (principal); Z96.651 Presence of right artificial knee joint
CPT/HCPCS: 73560; 73565

== ENCOUNTER 2023-06-06 10:29 | Outpatient (AMB) | payer OTHER, SELFPAY ==
--- NOTE | 2023-06-06 11:03 | MHC.OFFVIS ---
Intake Intake Visit Reasons: ov- RT TKA 03/08/23 NE Intake Note: Barbara is a 62 year old female who presents today for a follow up of her Right Total Knee Arthoplasty 03/08/23. Patient reports that she is doing well Allergies No Known Allergies Allergy (Verified 04/18/23 12:17) HPI ov- RT TKA 03/08/23 NE HPI Details Barbara is a 62 year old female who presents today for a follow up of her Right Total Knee Arthoplasty 03/08/23. She is doing much better than prior. Her swelling has gone down. She is walking with minimal pain. [facility] Medical History Chest pain History of COVID-19 Arthritis Diabetes GERD (gastroesophageal reflux disease) Elevated cholesterol HTN (hypertension) Surgical History Hx of cardiac catheterization Hx of cholecystectomy H/O colonoscopy Hx of arthroscopy of right knee Social History Household Members: None Housing: House Are you a primary child care counselor to a significant other at home: No Do you presently have visiting nurse or other home services: No Patient Tobacco Use Status: Never used Tobacco service: No Physical Exam Extrem Other: Incision clean dry and intact 0-125 degrees motion Stable to varus/valgus stress Normal gait Results Reviewed Results Reviewed: I personally reviewed relevant radiographs. Right total knee arthroplasty in expected post operative position with no hardware complications or evidence of loosening Assessment & Plan Assessment & Plan (1) Status post total knee replacement, right: Comment: 03/08/2023 Dr. Asa Hoyos Code(s): Z96.651 - Presence of right artificial knee joint Plan: Doing very well. Continue activity as tolerated and strengthening exercises. Discussed Dental prophylaxis for two years after joint replacement surgery & I will send Antibiotics to her pharmacy for upcoming dental appointment Follow up 1,5,10 years as needed Orders: Orders XR knee standing BI Today M25.569 - Pain in unspecified knee XR knee RT 2V Today M25.569 - Pain in unspecified knee Coding Level of Care Code Global (68947) Diagnoses Status post total knee replacement, right Z96.651
== END 2023-06-06 11:17 | disposition home or self-care (01) ==
PROVIDERS: PCP Hospitalist; Visit Provider Orthopaedic Surgery
DX: Z96.651 Presence of right artificial knee joint (principal)
CPT/HCPCS: 99024